=== PATIENT | male | born 1945 | race Caucasian/White ===

== ENCOUNTER 2023-04-04 09:54 | Outpatient (AMB) | payer MEDICARE, SELFPAY ==
--- NOTE | 2023-04-04 10:11 | A.OFFVIS_ITS ---
Intake Vital Signs 04/04/23 10:17 Height 6 ft 3 in Weight 192 lb BMI 24.0 BP 132/84 Blood Pressure Location Rt brachial Position Sitting Pulse 73 Pulse Source Pulse Oximeter Pulse Oximetry (%) 95 Oxygen Delivery Method Room Air Intake Visit Reasons: [id number]-IFC Intake Note: Patient presents for parkinson's. We were going to a doctor in [place] for my tremors but things happened where I couldn't travel to every appointment so we looked for something close by. Allergies oxycodone [OXYCODONE] Allergy (Unknown, Unverified 04/04/23 10:19) UNK Gxreaqg-HEI-OlW Reductase Inhibitor [BCQFIMV-BRH-YSA REDUCTASE INHIBITOR] Allergy (Unknown, Unverified 04/04/23 10:19) UNK LEVOQUIN Allergy (Unknown, Uncoded 04/04/23 10:19) UNK LEVOSTATIN Allergy (Unknown, Uncoded 04/04/23 10:19) UNK HPI HPI Comments History of Present Illness Details 77-yr-old male presents for new pt evalu ation of movement disorder, specifically: transfer of care for Parkinson's. Accompanied by his , Swathi. Pt reports he was diagnosed w/ Parkinson's in 2019. He states shortly after he had open heart surgery. He started noting RUE rest tremor- such as when driving or being more tired. He was initially diagnosed w/ Parkinson's by Dr Levy and then [place] [facility] [place] Current PD med tx: CD-LD 25-100mg 1 tab qid- 6am, 10am, 2pm, 6pm. Can wear off when he is late for a dose by an hour. He was 1st tried on rasagiline, he he denies intolerance, states it was just stopped when he switched to carbidopa levodopa. Had a brain MRI- at [facility]- normal. No h/o DaTscan. Past medical history is significant for: Recent diagnosis of liver cyst, recent TURP. PFO closure, heart disease. Pt is ambidextrous- writes, uses a bow and arrow right handed, shoots a gun left handed. Can hammer either hand. ADL status: Ind IADL status: Ind Fine-motor skills: No issues. Coffee cup may shake. Pt reports: Micrographia: Small and shaky. Hypophonia: May be hoarse Hyposmia: Intact Dysphagia: Denies Drooling: Sometimes when he eats Orthostatic lightheadedness: Has had episodes of lightheadedness when standing for a while or standing up. 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 new cardiac valve ([facility] site). : urinary leakage. Constipation: Denies- more so loose stools- varies depending on diet. Slowness: Feels slower overall- even before he had recent health issues. Freezing episodes: After the heart sx- he did feel like the RLE moved like it was on ice. Tremor: Now RUE rest tremor, left arm has just started w/ rest tremor. More if tired or anxious. Some action tremor- holding a coffee cup. Stiffness: Denies Gait changes: No falls. notes he is more stooped. Sleep difficulty: Waking up frequently- has nocturia. Slept walked as a child. No recent parasomnias. Memory impairment: Overall ok. Some STM lapses, usually if not important. Does have [place]- does not hear well w/o HAs. Plays solitaire. Hallucinations: Denies Usual exercise: Plays golf. Goes hunting w/ his family. Does yard work. Mother: He has had 2 episodes from the left eye, where a it appears that a shade is coming down, which last seconds. He states he has had an extensive workup for this, and the etiology was not elicited. History of concussion/head injury? Denies History of neuroleptic (metoclopramide/antipsychotics) use? Denies History of psychiatric hospitalizations? Denies History of occupational chemical exposures? Was in the [place] worked on an [employer]. [employer] on a [employer] unit for 32 yrs 4 months. Family history of movement disorders? His brother had ET since age 12. Family history of mood disorder or suicide? Denies. REPLACED BY [facility] Surgical History (Updated 04/18/23 @ 17:23 by GALE Koroma) S/P patent foramen ovale closure H/O transurethral resection of prostate H/O heart surgery Family History (Updated 04/04/23 @ 10:23 by NEEMA Sahu) Father CHF (congestive heart failure) Emphysema lung Mother Pneumonia Brother Tremor Social History (Updated 04/04/23 @ 10:23 by NEEMA Sahu) Alcohol intake: never Patient Tobacco Use Status: Never used Tobacco Review of Systems Const All systems reviewed & are unremarkable except as noted in HPI and below Physical Exam Vital Signs: Last Vital Signs Pulse 73 04/04/23 10:17 BP 132/84 04/04/23 10:17 Pulse Ox 95 04/04/23 10:17 Oxygen Delivery Method Room Air 04/04/23 10:17 BMI result Body Mass Index 24.0 Const General: cooperative and no acute distress Resp Effort & Inspection: normal respiratory effort and able to speak in complete sentences Neuro Other: General: Alert and oriented x3 Expression: Decreased facial expression, mild left lower facial asymmetry Voice: Softer Tremor: RUE rest tremor, mild BUE postural tremor, very mild bilateral kinetic tremor on finger-nose test Tone: Mild left wrist tone MIKIE: Slightly decreased fluidity in LUE Dyskinesia: None FFM: Mildly decreased Foot taps: Decreased on right- elicited bilateral left greater than right spread of movement into BUE- patient had never noticed this before. Gait: Stand slowly, slight stoop, no right arm swing, decreased left arm swing, steady gait. Psych: Pleasant affect Cranial nerves: Yes CN's II-XII intact bilaterally Motor exam (neuro): 5/5 motor strength present throughout Deep tendon reflexes (DTR's): Right triceps reflex intensity grade: 2+, Left triceps reflex intensity grade: 2+, Rt Biceps (C5, C6): 2+, Left biceps reflex intensity grade: 2+, Right brachioradialis reflex intensity grade: 2+, Left brachioradialis reflex intensity grade: 2+, Right patellar reflex intensity grade: 2+ and Left patellar reflex intensity grade: 2+ Coordination: uoraam-fe-idof test normal Psych Mental Status: mental status grossly normal Speech and movement: Normal speech and movement present Affect: normal affect Attitude: cooperative Thought process: Normal thought process present Assessment & Plan Assessment & Plan (1) Parkinson's disease without dyskinesia: Code(s): G20.A1 - Parkinson's disease without dyskinesia, without mention of fluctuations (2) Orthostatic lightheadedness: Code(s): R42 - Dizziness and giddiness (3) Tremor: Code(s): R25.1 - Tremor, unspecified Plan Continue carbidopa levodopa 25-100 mg 1 tab q.i.d. Ensure adequate fluid intake, electrolyte replacement beverages. Try foot taps prior to standing, stand up slowly, avoid turning too quickly. Continue to slowly increase physical activity. Continue cognitively stimulating activities. Patient seen in collaboration with Dr. Brown. Follow-up in 3 months or sooner as needed Coding Level of Care Code New Pt Level 4 (51209) Diagnoses Parkinson's disease without dyskinesia G20.A1 Orthostatic lightheadedness R42 Tremor R25.1
[2023-04-04 10:17] VITALS: BP 132/84; PULSE 73; O2SAT 95; BMI 24.0
== END 2023-04-04 11:46 | disposition home or self-care (01) ==
PROVIDERS: PCP Internal Medicine; Visit Provider Nurse Practitioner Family
DX: G20.A2 Parkinson's disease without dyskinesia, with fluctuations (principal); R42 Dizziness and giddiness
CPT/HCPCS: 99204

== ENCOUNTER → 2023-04-04 09:54 | Outpatient (BNVA) | payer MEDICARE, SELFPAY | PROVIDERS: PCP Internal Medicine; Visit Provider Nurse Practitioner Family | DX: G20.A1 Parkinson's disease without dyskinesia, without mention of fluctuations (principal); R42 Dizziness and giddiness; Z79.899 Other long term (current) drug therapy | CPT/HCPCS: 99202 ==

== ENCOUNTER 2023-07-05 11:26 | Outpatient (AMB) | payer MEDICARE, SELFPAY ==
--- NOTE | 2023-07-05 11:58 | A.OFFVIS_ITS ---
Vital Signs 07/05/23 12:11 Height 6 ft 3 in Weight 201 lb 4 oz BMI 25.2 BP 132/80 Blood Pressure Location Lt brachial Position Sitting Pulse 57 Pulse Source Pulse Oximeter Pulse Oximetry (%) 97 Oxygen Delivery Method Room Air Intake Visit Reasons: 3m follow up Parkinson/ Confirmed /address Intake Note: Patient presents for 3 months f/u. Both arms shake more when tired especially right hand. Went to see eye doctor and they questioned having a ocular migraine. on 04/06/23 the right eye shaded and left eyed did the same the next day. On 04/13 going to see Rag Room Supervisor questionable valve replacement. Allergies oxycodone [OXYCODONE] Allergy (Unknown, Verified 07/05/23 12:03) UNK Uvjuqjr-IGH-SnD Reductase Inhibitor [IAGQMIK-FDH-ELP REDUCTASE INHIBITOR] Allergy (Unknown, Verified 07/05/23 12:03) UNK LEVOQUIN Allergy (Unknown, Uncoded 04/04/23 10:19) UNK LEVOSTATIN Allergy (Unknown, Uncoded 04/04/23 10:19) UNK HPI Comments Details: 77-yr-old male presents for f/u for Parkinson's. Accompanied by his , Swathi. Since the last visit, pt reports on 04/06/23, pt reports he was sitting and watching TV, when it seemed like a curtain was being pulled down from over the right eye x's 1-1.5 minutes. Then the next night, he had this again, but it occurred on the left eye. He was off his ASA at this time for an upcoming procedure. In hindsight, believes pt was off his ASA when he had the 1st episode of shaded vision change in Dec 2022. He has a h/o severe migraine which resolved s/p AVR and PFO closure. Since, he has just mild headache and muscle soreness. He has taken Tylenol 650mg/1000mg 4 time sin the past 8 days. Current PD med tx: CD-LD 25-100mg 1 tab qid- 6am, 10am, 2pm, 6pm. Can wear off when he is late for a dose by an hour. Previous trials- 1st tried on rasagiline, he denies intolerance, was switched to carbidopa levodopa. Pt is ambidextrous- writes, uses a bow and arrow right handed, shoots a gun left handed. Can hammer either hand. ADL status: Ind Hypophonia: May be hoarse Hyposmia: Intact Dysphagia: Denies Drooling: Noticing more drooling. Orthostatic lightheadedness: This is better since stopping spirinolactone and reducing entresto. : Improved, no leakage. Constipation: Denies. Slowness: Feels slower overall- even before he had recent health issues. Freezing episodes: Denies Tremor: Now RUE rest tremor, left arm has just started w/ rest tremor. More if tired or anxious. Some action tremor- holding a coffee cup. Stiffness: Denies Gait changes: He has had 2 falls- one was he tripped stepping off a small ledge, dave othe rtripped over alog. It feels like his RLE is dragging a bit more. Sleep difficulty: Waking up frequently- has nocturia. Slept walked as a child. No recent parasomnias. Memory impairment: Overall ok. Some STM lapses, usually if not important. Wearing HAs. Plays solitaire on the computer. Hallucinations: Denies Usual exercise: Plays golf. Goes hunting w/ his family. Does yard work. 04/19/23, US Duplex Cranial Ext. Artery BiLat IMPRESSION: RIGHT SIDE: 1. 1-49% stenosis of the right ICA. 2. The vertebral artery has normal antegrade flow. 3. The subclavian artery has normal multiphasic flow. LEFT SIDE: 1. 1-49% stenosis of the left ICA. 2. The vertebral artery has normal antegrade flow. 3. The subclavian artery has normal multiphasic flow. [facility] Surgical History S/P patent foramen ovale closure H/O transurethral resection of prostate H/O heart surgery Family History Father CHF (congestive heart failure) Emphysema lung Mother Pneumonia Brother Tremor Social History Alcohol intake: never Patient Tobacco Use Status: Never used Tobacco Review of Systems Const All systems reviewed & are unremarkable except as noted in HPI and below Physical Exam Vital Signs: Last Vital Signs Pulse 57 07/05/23 12:11 BP 132/80 07/05/23 12:11 Pulse Ox 97 07/05/23 12:11 Oxygen Delivery Method Room Air 07/05/23 12:11 BMI result Body Mass Index 25.2 Const General: cooperative and no acute distress Resp Effort & Inspection: normal respiratory effort and able to speak in complete sentences Neuro Other: General: Alert and oriented x3 Expression: Decreased facial expression, mild left lower facial asymmetry Voice: Softer Tremor: RUE rest tremor, mild BUE postural tremor. Tone: Mild left wrist tone MIKIE: Slightly decreased fluidity in LUE Dyskinesia: None FFM: Mildly decreased Foot taps: Decreased on right- elicited LUE spread of movement tremor. Gait: Stand slowly, slight stoop, no right arm swing, decreased left arm swing, steady gait. Psych: Pleasant affect Assessment & Plan Assessment & Plan (1) Parkinson's disease without dyskinesia: Code(s): G20.A1 - Parkinson's disease without dyskinesia, without mention of fluctuations Category: Medical (2) Headache: Code(s): R51.9 - Headache, unspecified Category: Medical (3) Transient visual loss: Comment: ? aura w/o headache, ? r/t holding ASA in setting of h/o migraine and PFO. Code(s): H53.129 - Transient visual loss, unspecified eye Category: Medical Plan Continue carbidopa-levodopa 25-100 mg 1 tab q.i.d. Ensure adequate fluid intake, electrolyte replacement beverages, such as liquid IV. Continue to engage in regular physical activity. Continue cognitively stimulating activities. Monitor drooling. Monitor headaches and visual episodes. Continue ASA 81mg qd. May use tylenol prn. Future considerations: gepant. ? Follow-up in 6 months or sooner as needed Coding Level of Care Code Est Pt Level 4 (65856) Diagnoses Parkinson's disease without dyskinesia G20.A1 Headache R51.9 Transient visual loss H53.129
[2023-07-05 12:11] VITALS: BP 132/80; PULSE 57; O2SAT 97; BMI 25.2
== END 2023-07-05 14:19 | disposition home or self-care (01) ==
PROVIDERS: PCP Internal Medicine; Visit Provider Nurse Practitioner Family
DX: G20.A1 Parkinson's disease without dyskinesia, without mention of fluctuations (principal); R51.9 Headache, unspecified; H53.129 Transient visual loss, unspecified eye
CPT/HCPCS: 99214

== ENCOUNTER → 2023-07-05 11:26 | Outpatient (BNVA) | payer MEDICARE, SELFPAY | PROVIDERS: PCP Internal Medicine; Visit Provider Nurse Practitioner Family | DX: G20.A1 Parkinson's disease without dyskinesia, without mention of fluctuations (principal); R51.9 Headache, unspecified; H53.129 Transient visual loss, unspecified eye; Z79.82 Long term (current) use of aspirin | CPT/HCPCS: 99212 ==

== ENCOUNTER 2024-01-23 10:50 | Outpatient (AMB) | payer MEDICARE, SELFPAY ==
--- NOTE | 2024-01-23 10:55 | A.OFFVIS_ITS ---
Vital Signs 01/23/24 11:00 Height 6 ft 3 in Weight 178 lb 6 oz BMI 22.3 BP 110/80 Blood Pressure Location Lt brachial Position Sitting Pulse 83 Pulse Source Pulse Oximeter Pulse Oximetry (%) 96 Oxygen Delivery Method Room Air Intake Visit Reasons: 6 mo f/u Intake Note: Patient presents for a 6 mo fu for Parkinson's. Personal Financial Representative Required: No Accompanied by: Spouse Allergies oxycodone [OXYCODONE] Allergy (Unknown, Verified 01/23/24 11:00) UNK Kmwrpbl-TOV-KlT Reductase Inhibitor [ZIWACPO-HTM-HQB REDUCTASE INHIBITOR] Allergy (Unknown, Verified 01/23/24 11:00) UNK LEVOQUIN Allergy (Unknown, Uncoded 04/04/23 10:19) UNK LEVOSTATIN Allergy (Unknown, Uncoded 04/04/23 10:19) UNK Medication List - Last Reconciled 01/23/24 by GALE Koroma amoxicillin 1,000 mg PO BID PRN aspirin (Adult Aspirin Regimen) 81 mg PO DAILY carbidopa-levodopa 25-100 mg (Sinemet) 1 tab QID and may take 1 extra tab per day (max 2 tabs at a time) orally; 90 days cephalexin 500 mg PO QID PRN finasteride 5 mg PO DAILY metoprolol succinate ER 12.5 mg PO DAILY sacubitril-valsartan 24-26 mg (Entresto) 0.5 tabs PO BID HPI Comments Details: 77-yr-old male presents for f/u for Parkinson's. Accompanied by his , Carmella tellez. Pt reports the following interval hsitory: * August 2023- had a mild case of Covid-19 * 09/2023- [facility] admission for cholangitis w/ laparoscopic cholecystectomy. * 12/12/2023- [facility] cardiac surgeon consult w/ Dr Roman Miranda,- raised ? of f/u AVR, however per pt, however Dr Ruiz's team has advised him to manage/monitor this medically. * 12/16/23- developed a visible abdominal lump * 01/18/24- [facility] admission for same abdominal lump became reddened. As pt has a h/o melanoma, pt was d/c'd home w/ plan to have oncology consult and f/u abd mass core biopsy- he is awaiting call on this. In-pt work-up: -Mild anemia - Abd CT- Probable extra-abdominal abscess located within the super right paramedian ventral abdominal wall at site of presumed laparoscopic port. Area of abnormality is measuring up to 3.6 cm with hazy borders and surrounding fat stranding as well as a superficial mild extension into the peritoneum. Skin thickening superficial to the collection. This finding correlates with the collection seen on recent MRI. - Abd MRI w/wo: 1. Rim-enhancing areas involving the anterior abdominal wall but also extending into the intraperitoneal fat one near midline extending from the subcutaneous fat to the intraperitoneal fat, the other involving the anterior margin of the liver in the prior location of the anterior aspect of the gallbladder fossa, and extending to the deep aspect of the RIGHT anterior abdominal musculature but not the subcutaneous fat consistent with persisting inflammation or infection of access sites utilized during the laparoscopic cholecystectomy of September 2023. 2. Large number of hepatic cysts. Several small cystic foci in the pancreatic body suggestive of side branch IPMNs or as per ACR recommendations, no dedicated imaging follow- up is required but a one-time follow-up in 2 years could be considered if clinically warranted. * Plans to have bilateral cataract replacement after the new year. Specific concerns today: Pt reports generally he wakes up in the am, he feels good. But later in the morning, after cleaning the kitchen, will need to rest. He can do some activities, but needs frequent breaks. Will often need to rest for the later part of the day. notes he usually just rests and does not sleep when resti ng. He may cough so hard or have dry heaves, often happens when he is having a bowel movement, that he will vomit. His nose drips while eating. He often has a bitter taste in his mouth. He has decreased appetite and weight loss- best meal is typically at breakfast/lunch, but does tend to pick at his food. Uses 1% milk. Pt wonders if he can take an extra dose of CD-LD mid-morning when he is more s haky. Current PD med tx: CD-LD 25-100mg 1 tab qid- 6am, 10am, 2pm, 6pm. Can be more shaky after 10am dose when doing yard work. Previous trials- 1st tried on rasagiline, he denies intolerance, was switched to carbidopa levodopa. Pt is ambidextrous- writes, uses a bow and arrow right handed, shoots a gun left handed. Can hammer either hand. ADL status: Ind Hypophonia: May be hoarse Hyposmia: Intact Dysphagia: Denies Drooling: Noticing more drooling. Orthostatic lightheadedness: Comes and goes especially if SBP is <112, manages by sitting and taking extra wtaer. : Improved, no leakage. Constipation: Denies. Slowness: Walks slower overall. Freezing episodes: Denies Tremor: BUE L > R rets tremor, Stiffness: Denies Gait changes: Slower walking. One interval fall- was doing yard work and stepping on an unstable walk. Sleep difficulty: Waking up frequently- has nocturia. Slept walked as a child. No recent parasomnias. Memory impairment: Overall ok. Stable STM lapses, usually if not important. Wearing HAs. Plays solitaire on the computer. Hallucinations: Denies Usual exercise: Tries to walk and does yard work. PFSH Surgical History S/P patent foramen ovale closure H/O transurethral resection of prostate H/O heart surgery Family History Father CHF (congestive heart failure) Emphysema lung Mother Pneumonia Brother Tremor Social History Alcohol intake: never Patient Tobacco Use Status: Never used Tobacco Physical Exam Vital Signs: Last Vital Signs Pulse 83 01/23/24 11:00 BP 110/80 01/23/24 11:00 Pulse Ox 96 01/23/24 11:00 Oxygen Delivery Method Room Air 01/23/24 11:00 BMI result Body Mass Index 22.3 Const General: cooperative and no acute distress Resp Effort & Inspection: normal respiratory effort and able to speak in complete sentences Neuro Other: General: Alert and oriented x3 Skin: Red raised visible mass along right abdomen. Expression: Decreased facial expression, mild left lower facial asymmetry Voice: Softer Tremor: RUE and RLE rest tremor, mild BUE postural tremor. Tone: Mild left wrist tone Dyskinesia: None FFM: Mildly decreased Foot taps: Decreased on right- elicited LUE spread of movement tremor. Gait: Stand slowly, slight stoop, no right arm swing, decreased left arm swing, steady gait. Psych: Pleasant affect Assessment & Plan Assessment & Plan (1) Parkinson's disease without dyskinesia: Code(s): G20.A1 - Parkinson's disease without dyskinesia, without mention of fluctuations Category: Medical (2) Weight loss: Code(s): R63.4 - Abnormal weight loss Category: Medical (3) Headache: Code(s): R51.9 - Headache, unspecified Category: Medical (4) Transient visual loss: Comment: ? aura w/o headache, ? r/t holding ASA in setting of h/o migraine and PFO. Code(s): H53.129 - Transient visual loss, unspecified eye Category: Medical Plan Discussed that many of pt's s/s of fatigue, poor appetite may have multi- factorial etiology. F/u of abd mass as planned w/ core biopsy and oncology consult. F/u w/ cardiology as scheduled. Continue carbidopa-levodopa 25-100 mg 1 tab q.i.d. May take 1 extra tab per day, max 2 tabs at a time. Ensure adequate fluid intake, electrolyte replacement beverages, such as liquid IV. 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 Discussed simple strategies to improve swallowing safety, such as chin tucks, double swallow, alternating between liquids and solids. Pt has had swallow eval previously. As pt has decreased appetite and weight loss, encouraged pt to increase caloric/nutritional component of his meals- ie try adding whole/milk based fruit/veggie smoothies, add peanut/nuts to snacks. Continue to engage in regular physical activity- take rests as needed. Continue cognitively stimulating activities. Monitor drooling. Monitor headaches and visual episodes. Continue ASA 81mg qd. May use tylenol prn. Future considerations: gepant. ? Follow-up in 6 months or sooner as needed Medications: Changed From carbidopa-levodopa 25-100 mg (Sinemet) 1 tab PO QID 90 days 360 tabs 1RF To carbidopa-levodopa 25-100 mg (Sinemet) 1 tab QID and may take 1 extra tab per day (max 2 tabs at a time) orally; 540 tabs 1RF 90 days Coding Level of Care Code Est Pt Level 4 (09472) Complex EM visit Add On G2211 Diagnoses Parkinson's disease without dyskinesia G20.A1 Weight loss R63.4 Headache R51.9 Transient visual loss H53.129
[2024-01-23 11:00] VITALS: BP 110/80; PULSE 83; O2SAT 96; BMI 22.3
== END 2024-01-23 11:54 | disposition home or self-care (01) ==
PROVIDERS: PCP Internal Medicine; Visit Provider Nurse Practitioner Family
DX: G20.A1 Parkinson's disease without dyskinesia, without mention of fluctuations (principal); R63.4 Abnormal weight loss; R51.9 Headache, unspecified; H53.129 Transient visual loss, unspecified eye
CPT/HCPCS: 99214; G2211

== ENCOUNTER → 2024-01-23 10:50 | Outpatient (BNVA) | payer MEDICARE, SELFPAY | PROVIDERS: PCP Internal Medicine; Visit Provider Nurse Practitioner Family | DX: G20.A1 Parkinson's disease without dyskinesia, without mention of fluctuations (principal); R63.4 Abnormal weight loss; R51.9 Headache, unspecified; H53.129 Transient visual loss, unspecified eye | CPT/HCPCS: 99212 ==

== ENCOUNTER 2024-07-26 10:06 | Outpatient (AMB) | payer MEDICARE, SELFPAY ==
[2024-07-26 10:17] VITALS: BP 100/62; PULSE 80; O2SAT 96; BMI 21.7
--- NOTE | 2024-07-26 10:17 | A.OFFVIS_ITS ---
Vital Signs 07/26/24 10:17 Height 6 ft 3 in Weight 174 lb BMI 21.7 BP 100/62 Blood Pressure Location Lt brachial Position Sitting Pulse 80 Pulse Source Pulse Oximeter Pulse Oximetry (%) 96 Oxygen Delivery Method Room Air Intake Visit Reasons: 6 mo f/u Intake Note: Patient presents 6 month follow up for Parkinson's/headaches. Trauma Counsellor Required: No Accompanied by: Self / Same As Patient Allergies oxycodone [OXYCODONE] Allergy (Unknown, Verified 07/26/24 10:17) UNK Ccefkax-ZMC-HsP Reductase Inhibitor [XZATCRL-NIG-QSM REDUCTASE INHIBITOR] Allergy (Unknown, Verified 07/26/24 10:17) UNK LEVOQUIN Allergy (Unknown, Uncoded 04/04/23 10:19) UNK LEVOSTATIN Allergy (Unknown, Uncoded 04/04/23 10:19) UNK Medication List - Last Reconciled 07/26/24 by Yuli Ugalde, GALE amoxicillin 1,000 mg PO BID PRN aspirin (Adult Aspirin Regimen) 81 mg PO DAILY carbidopa-levodopa 25-100 mg (Sinemet) 1 tab orally 5 Times per day; 90 days finasteride 5 mg PO DAILY omeprazole 20 mg PO DAILY HPI Comments Details: 78-yr-old male presents for f/u for Parkinson's. Accompanied by his , Swathi. Pt reports he underwent interval recent hospitalization for liver abscesses. Per [facility], [place] note initial MRI showed new abscess locations compared to previous infections, and the patient eventually underwent drainage with cultures that grew Citrobacter freundii, which was susceptible to tetracyclines, aminoglycosides, cefepime, ceftriaxone, and carbapenems, he was initially started on Zosyn, but due to lack of susceptibility data for Zosyn, antibiotic therapy was switched to ertapenem; imaging also revealed hepatic simple cysts, the largest measuring 10.5 cm, and while IR initially attempted drainage without success, they were able to aspirate a small amount of fluid and planned for a return with CT guidance; the IR drain was ultimately removed on 07/20 following complete resolution of both subcapsular and left hepatic lobe collections, and catheters were removed without complication; throughout the course, the patient denied fever, chills, nausea, or diarrhea, and a PICC line was placed without evidence of swelling, erythema, or drainage; a tentative plan for 4 weeks of IV ertapenem was established, with completion scheduled for 07/24 . Pt reports within 24 hrs of starting the ABT for treatment of above liver abscesses, he started to feel better and was able to eat again. He continues to eat better, taking protein supplements and plans to start a probiotic. He has gained about 6 lb since hospital discharge. Overall patient is feeling better. Patient and canceled follow-up PFTs and swallow study, as patient is eating better, not having any difficulty swallowing, and he is breathing better since hospital discharge. His energy level overall is in increasing slowly. he was discharged home with PT, however they stated that his gait is okay and he was discharge. Current PD med tx: He did increase the carbidopa levodopa after the last visit from 1 tab q.i.d. to 1 tab 5 times per day, which has been beneficial. CD-LD 25-100mg 1 tab 5 times per day- 6am, 9am, 12pm, 3pm, 6pm. Can be more shaky after 9am dose. Previous trials- 1st tried on rasagiline, he denies intolerance, was switched to carbidopa levodopa. Pt is ambidextrous- writes, uses a bow and arrow right handed, shoots a gun left handed. Can hammer either hand. ADL status: Ind Hypophonia: May be hoarse Hyposmia: Intact Dysphagia: Denies Drooling: Noticing more drooling. Orthostatic lightheadedness: Comes and goes. His entresto and metoprolol were stopped during the hospitalization due to orthostatic lightheadedness. : Improved, no leakage. Constipation: Had constipation, but has had some loose stools overall the last few days. Slowness: Walks slower overall. Freezing episodes: Denies Tremor: BUE L > R rest tremor Stiffness: Denies Gait changes: Slower walking. Can be off-balance with turns. No interval falls. Sleep difficulty: Waking up 2 x's per night to void. Slept walked as a child. No recent parasomnias. Memory impairment: Overall ok. Stable STM lapses, usually if not important. Wearing HAs. Plays solitaire on the computer. Hallucinations: Denies Usual exercise: Trying to walk. PFSH Surgical History S/P patent foramen ovale closure H/O transurethral resection of prostate H/O heart surgery Family History Father CHF (congestive heart failure) Emphysema lung Mother Pneumonia Brother Tremor Social History Alcohol intake: never Patient Tobacco Use Status: Never used Tobacco Physical Exam Vital Signs: Last Vital Signs Pulse 80 07/26/24 10:17 BP 100/62 07/26/24 10:17 Pulse Ox 96 07/26/24 10:17 Oxygen Delivery Method Room Air 07/26/24 10:17 BMI result Body Mass Index 21.7 Const General: cooperative and no acute distress Resp Effort & Inspection: normal respiratory effort and able to speak in complete sentences Neuro Other: General: Alert and oriented x3 Expression: Decreased facial expression, mild left lower facial asymmetry Voice: Softer Tremor: RUE rest tremor, mild BUE postural tremor. Foot taps induced left hand spread of movement Tone: Mild left wrist tone Dyskinesia: None FFM: Mildly decreased Foot taps: Decreased o Gait: Stand slowly, slight stoop, no right arm swing, decreased left arm swing, steady gait. Psych: Pleasant affect Assessment & Plan Assessment & Plan (1) Parkinson's disease without dyskinesia: Code(s): G20.A1 - Parkinson's disease without dyskinesia, without mention of fluctuations Category: Medical Qualifiers: Fluctuating manifestations: with fluctuating manifestations Qualified Code(s): G20.A2 - Parkinson's disease without dyskinesia, with fluctuations (2) Orthostatic lightheadedness: Code(s): R42 - Dizziness and giddiness Category: Medical (3) Weight loss: Comment: Improving Code(s): R63.4 - Abnormal weight loss Category: Medical (4) Headache: Code(s): R51.9 - Headache, unspecified Category: Medical (5) Liver abscess due to bacteria: Comment: June 2024, , tx'd w/ Zosyn and s/p drainage with cultures that grew Citrobacter freundii and ertapenem Code(s): K75.0 - Abscess of liver; B96.89 - Other specified bacterial agents as the cause of diseases classified elsewhere Category: Medical (6) Simple hepatic cyst: Code(s): K76.89 - Other specified diseases of liver Category: Medical Plan Patient' s/s of fatigue and poor appetite have improved status post treatment of liver abscesses. Concur with taking protein shakes with ice cream to improve tolerance. Advised to follow-up with GI or ID if loose stools persist or worsen. F/u with GI as scheduled For Parkinson's without dyskinesia: Continue carbidopa-levodopa 25-100 mg 1 tab 5 times per day, may take an extra 1/2-1 tab per day as needed. For orthostatic lightheadedness: * Entresto and metoprolol were discontinued due to orthostatic lightheadedness while he was recently hospitalized. * Ensure adequate fluid intake, electrolyte replacement beverages, such as liquid IV, Gatorade or Powerade. * Encouraged patient to stand slowly to reduce symptoms of orthostatic lightheadedness. * follow-up with cardiology as scheduled Encouraged patient to turn slowly- to reduce risk for becoming off balance. Continue to slowly increase regular physical activity- take rests as needed. Continue cognitively stimulating activities. Future consideration: Referral to [facility] big type PT program. Monitor headaches and visual episodes. Continue ASA 81mg qd. May use tylenol prn. Future considerations: gepant. ? Follow-up in 6 months or sooner as needed Medications: Changed From carbidopa-levodopa 25-100 mg (Sinemet) 1 tab QID and may take 1 extra tab per day (max 2 tabs at a time) orally; 90 days 540 tabs 1RF To carbidopa-levodopa 25-100 mg (Sinemet) 1 tab orally 5 Times per day; 90 days 450 tabs 1RF Coding Level of Care Code Est Pt Level 4 (31472) Complex EM visit Add On G2211 Diagnoses Parkinson's disease without dyskinesia, with fluctuating manifestations G20.A2 Fluctuating manifestations: with fluctuating manifestations Orthostatic lightheadedness R42 Weight loss R63.4 Headache R51.9 Liver abscess due to bacteria K75.0; B96.89 Simple hepatic cyst K76.89
--- OUTSIDE RECORDS SUMMARY | 2024-07-26 10:26 | XMS_ITS | Clinical Summary ---
Author Organization [facility] Address [address] [place] [address] Phone Care Team Providers Care Piggyback Clerk Name Role Phone Liane León MD Primary Care Provider [phone] Allergies Active Allergy Reactions Criticality Noted Date Comments Ceftriaxone 01/20/2023 Levofloxacin Rash High 11/28/2013 Niacin Flushing,Other 11/28/2013 Flushing Oxycodone 01/20/2023 Oxycodone-Acetaminophen 06/13/2017 Spironolactone 01/20/2023 Qquszrf-Lud-Pje Reductase Inhibitors 06/13/2017 Medications carbidopa-levodopa (PARCOPA) 25-100 mg per disintegrating tablet Take 1 tablet by mouth 4 (four) times a day. May take up to 5 tablets if needed Active aspirin (Vazalore) 81 mg capsule Take 1 tablet by mouth 1 (one) time each day. Active finasteride (PROSCAR) 5 mg tablet Take 1 tablet (5 mg total) by mouth 1 (one) time each day. Active amoxicillin (AMOXIL) 500 mg capsule Take by mouth. Take 4 capsules 1 hour prior to dental procedure Active citalopram (CeleXA) 20 mg tablet Take 0.5 tablets (10 mg total) by mouth. 05/25/19 25 Active calcipotriene-dres sing 0.005 % kit Apply topically. 03/09/19 17 Active omeprazole (PriLOSEC) [address] capsule Take 1 capsule (20 mg total) by mouth 1 (one) time each day. Do not crush or chew. Active ferrous sulfate 325 mg (65 mg elemental iron) tablet Take 1 tablet (325 mg total) by mouth. 06/25/19 25 Active metoprolol succinate (TOPROL-XL) 25 mg 24 hr tablet Take 0.5 tablets (12.5 mg total) by mouth 1 (one) time each day. 45 tablet 2 01/19/20 24 Discontinu ed(Discont inued by another clinician) sacubitriL-valsart an (Entresto) 24-26 mg per tablet Take 0.5 tablets by mouth 2 (two) times a day. Discontinu ed(Discont inued by another clinician) clobetasoL (TEMOVATE) 0.05 % ointment Apply topically. 03/09/19 17 Discontinu ed(Discont inued by another clinician) losartan (COZAAR) 100 mg tablet Take 1 tablet (100 mg total) by mouth 1 (one) time each day. 03/27/19 19 Discontinu ed(Discont inued by another clinician) cyanocobalamin (VITAMIN B-12) 1,000 mcg tablet Take 1 tablet (1,000 mcg total) by mouth 1 (one) time each day. 03/26/19 23 Discontinu ed(Discont inued by another clinician) vibegron (GEMTESA) 75 mg tablet tablet Take 1 tablet (75 mg total) by mouth 1 (one) time each day. Discontinu ed(Discont inued by another clinician) oxyBUTYnin XL (DITROPAN-XL) 10 mg 24 hr tablet Take 1 tablet (10 mg total) by mouth. Do not crush, chew, or split. Discontinu ed(Discont inued by another clinician) MULTIVITAMIN ORAL Take by mouth. Discontinu ed(Discont inued by another clinician) terazosin (HYTRIN) 1 mg capsule Take 1 capsule (1 mg total) by mouth at bedtime. Discontinu ed(Discont inued by another clinician) hydroCHLOROthiazid e (HYDRODIURIL) 25 mg tablet Take 1 tablet (25 mg total) by mouth 1 (one) time each day. Discontinu ed(Discont inued by another clinician) carbidopa-levodopa CR (SINEMET CR) 50-200 mg per CR tablet Take 1 tablet by mouth 2 (two) times a day. Do not crush or chew. Discontinu ed(Discont inued by another clinician) Active Problems Problem Noted Date Diagnosed Date Major depressive disorder, s janna episode, mild (CMS/[facility] V24) 07/24/2024 Cataract, bilateral 07/24/2024 Adjustment disorder with mixed anxiety and depre ssed mood 07/24/2024 Irregular heart rate 07/13/2024 Assessment & Plan (07/13/2024 10:22 PM EDT): Sinus bradycardia noted on ECG; will continue to monitor. Orders: ECG 12 lead Anxiety disorder, unspecified 07/05/2024 Irritability and anger 07/05/2024 Essential (primary) hypertension 07/05/2024 Assessment & Plan (07/13/2024 10:22 PM EDT): Given his dizziness, all antihypertensives have been stopped. BP has been somewhat labile and slightly above goal intermittently but his dizziness is improved; he is orthostatic but asymptomatic today. We will continue to hold off on restarting medical therapies until after his echo is completed. They will continue to monitor BP at home and call if blood pressures are persistently elevated above 140/80s at which time we may reconsider reinitiating medical therapies sooner. We will continue close follow up. Diverticulosis of colon 06/04/2024 Overview (06/04/2024): [birth year] 2008 Entered By: SHILA ANDREW Comment: -- by colonoscopy 08/06 Hypertension 06/04/2024 Osteoarthritis 06/04/2024 Overview (06/04/2024): Aug 29[birth year] 2008 Entered By: SHILA ANDREW Comment: -- right knee Tremor 06/04/2024 Overview (06/04/2024): Mar 30, 2017 Entered By: CAIN LUNA Comment: right hand, progressive ? 2 years at rest which decreases wit Mar 30, 2017 Entered By: CAIN LUNA Comment: PCP in the community Dr. Cheryl Harp has scheduled him for neurology in July [address] Pro Parkinson's disease ([facility] V24, [facility] V28) 0 06/04/2024 Primary hypertension 04/19/2024 Assessment & Plan (04/19/2024 12:43 PM EST): Blood pressure is well-controlled on current medical therapy; given his history of longstanding intermittent dizziness/lightheadedness, we will not make any changes today as he has historically not tolerated any higher doses of these medications well in the past for this reason. Continue metoprolol and low-dose Entresto. We will update labs today. Atrial fibrillation ([facility] V24, [facility] V28) 0 04/19/2024 Assessment & Plan (04/19/2024 12:43 PM EST): The patient carries a diagnosis of atrial fibrillation; I have previously discussed this with the patient and he does not recall ever having any episodes of atrial fibrillation and his confirms this. I previously reviewed multiple medical records from hospitalizations and previous EKGs and have not noted any documentation of this. It is unclear where this diagnosis came from. As such the patient is not anticoagulated. We discussed the risks and benefits related to this and he wishes to continue with the current plan of anticoagulation unless atrial fibrillation is documented. Chronic fatigue 04/19/2024 Assessment & Plan (04/19/2024 12:43 PM EST): We had an in-depth discussion today regarding other causes for the patient's various concerns, namely his chronic fatigue, dizziness, and unintentional weight loss. His fatigue and dizziness may have origins lying in his Parkinson's diagnosis; they will continue to follow with neurology and have a visit already planned for the next few months. He has been discussing increasing his carbidopa-levodopa with his neurologist and will continue to readdress this with that provider as indicated. He does not believe that he has had labs completed in quite some time; we will update labs today to evaluate for any possible underlying electrolyte derangement as well as for any anemia or thyroid dysregulation that may be contributory. Orders: Basic metabolic panel; Future Magnesium; Future Thyroid stimulating hormone with reflex free T4; Future Complete blood count; Future Chronic systolic heart failure ([facility] V24, [facility] V28) 04/19/2024 Assessment & Plan (07/13/2024 10:22 PM EDT): The patient has had a prolonged period of illness related to a combination of underlying GI illness including significant infection with liver abscesses; this has led to significant deconditioning which has contributed at least in part to his dizziness. Since his underlying infection has been treated and GDMT discontinued, his dizziness has improved greatly and he does appear to be slowly improving. Dr. Ruiz was present today for the patient's visit; we will plan to update an echocardiogram within the next one to two weeks and consider reinitiation of GDMT for heart failure based on these results. In the interim, he will continue to focus on his recovery and gaining strength and endurance, calling our office for any worsening heart failure symptoms. He appears euvolemic on exam today and offers no symptoms to cause concern for overt heart failure. I've asked the patient to call if they develop worsening symptoms of heart failure such as increased shortness of breath, new or worsening cough, increased swelling in the legs or ankles, or weight gain of more than 2 pounds in one day or 4 pounds in one week. Orders: Transthoracic echocardiogram (TTE) complete with PRN contrast, bubble, strain, and 3D order panel; Future Assessment & Plan (04/19/2024 12:43 PM EST): Weight loss, unintentional 04/19/2024 Assessment & Plan (04/19/2024 12:43 PM EST): As above; we had an in-depth discussion regarding the patient's significant health challenges over the last year, which are likely contributory to the the patient's change in appetite and subsequent weight loss. We discussed eating small frequent meals high in nutritional content and he will follow-up with his PCP regarding further concerns related to this. Orders: Thyroid stimulating hormone with reflex free T4; Future Hyperlipidemia 04/19/2024 Assessment & Plan (07/13/2024 10:22 PM EDT): LDL goal for this patient was a history of coronary artery disease is less than 70; his most recent lipid panel from 03/2024 was off any antilipid agents and LDL was 72. As above we will continue to consider reinitiating antilipid agents as he recovers. Assessment & Plan (04/19/2024 12:43 PM EST): LDL goal for this patient was a history of coronary artery disease is less than 70; as above we will update a lipid panel and and readdress this as needed as he is not currently on any statin therapy. Orders: Lipid panel with reflex to direct LDL; Future Dilated cardiomyopathy (CMS/HCC V24, CMS/HCC V28 ) 04/19/2024 Assessment & Plan (07/13/2024 10:22 PM EDT): Assessment & Plan (04/19/2024 12:43 PM EST): The patient has a dilated cardiomyopathy of uncertain origin; recent cardiac catheterization showed nonobstructive coronary artery disease, confirming that this was nonischemic in origin. LVEF in February 2023 was said to be 40 to 45%; on his most recent echocardiogram from June 2023, his LV function was noted to be severely reduced though no EF could be provided due to poor image quality. Transesophageal echocardiogram subsequently completed 12/09/2023 showed moderately reduced left ventricular systolic function with global hypokinesis, EF of 30 to 35%. The patient's biggest concern is ongoing fatigue; however, his fatigue remains unchanged from previous and he offers no other symptoms concerning for overt heart failure. It is unclear how much of his fatigue is actually related to his heart failure alone. He appears euvolemic on exam today. He continues to report occasional and inconsistent dizziness/lightheadedness with position changes with which presents concern for orthostatic hypotension, especially in the setting of Parkinson's diagnosis; historically, he has not tolerated any higher doses of guideline directed medical therapies for heart failure for this reason and we will not make any further changes to them today. Continue metoprolol and low-dose Entresto. Update labs. I've asked the patient to call if they develop worsening symptoms of heart failure such as increased shortness of breath, new or worsening cough, increased swelling in the legs or ankles, or weight gain of more than 2 pounds in one day or 4 pounds in one week. Coronary artery disease invo lving mcgrath coronary artery of mcgrath heart without angina pectoris 04/19/2024 Assessment & Plan (07/13/2024 10:22 PM EDT): He remains active within his current functional capacity secondary to deconditioning and offers no symptoms concerning for ischemia. He is no longer on beta blockade as above; he is not currently on any antilipid agents and we will continue to readdress this as he recovers. He will continue aspirin and we will reconsider restarting beta blockade appropriate. The patient was advised to seek emergent medical attention by calling 911 if they were to develop severe dyspnea, chest pain that did not resolve with rest, or if they were to faint. Assessment & Plan (04/19/2024 12:43 PM EST): Cardiac catheterization completed in October 2023 revealed a 50% stenosis in the proximal subsection of the mid LAD just after the bifurcation with D1 and minimal luminal irregularities of the LMCA, left circumflex, and RCA; no obstructive disease.We discussed risk reduction through lifestyle modifications including healthy diet, routine exercise, and weight management. Continue cardioprotective medical therapies including metoprolol and daily ASA. He is not currently on any statin therapy and has a statin allergy listed on his chart; we will update a lipid panel today and readdress this as needed. The patient was advised to seek emergent medical attention by calling 911 if they were to develop severe dyspnea, chest pain that did not resolve with rest, or if they were to faint. Orders: Lipid panel with reflex to direct LDL; Future Dizziness 04/19/2024 Assessment & Plan (07/13/2024 10:22 PM EDT): As above, improved from previous. We will reintroduce medical therapies cautiously and as indicated. No recent syncope or presyncope. His dizziness was likely multifactorial related to underlying illness/infection, deconditioning, and medications. He will call the office or seek emergent medical attention as appropriate. We will continue to readdress this as he continues to recover. Orders: Transthoracic echocardiogram (TTE) complete with PRN contrast, bubble, strain, and 3D order panel; Future Assessment & Plan (04/19/2024 12:43 PM EST): As above; the patient was encouraged to remain well-hydrated as well as change positions slowly. Falls precautions were reviewed. Bilateral carotid artery stenosis 04/19/2024 History of TIA (transient ischemic attack) 04/19 Stenosis of prosthetic aortic valve 04/19/2024 Assessment & Plan (07/13/2024 10:22 PM EDT): The patient is status post bovine aortic valve replacement in 2013 at [facility] with elevated gradients commented on as early as 4 months after the valve was initially placed. Given ongoing symptoms of significant fatigue and dizziness, he now status post a significant workup during the end of 2023 (including a cardiac catheterization, transthoracic and transesophageal echocardiograms, and dobutamine stress echocardiogram) which has concluded that the patient's aortic valve stenosis remains in the moderate and not severe range. As such, this does not appear to be causative for his symptoms. We reviewed signs or symptoms for which they should return to care or seek urgent medical attention for further evaluation and they verbalized understanding of this; we will continue to monitor this on serial echocardiograms. Assessment & Plan (04/19/2024 12:43 PM EST): The patient is status post bovine aortic valve replacement in 2013 at [facility] with elevated gradients commented on as early as 4 months after the valve was initially placed. Given ongoing symptoms of significant fatigue and dizziness, he now status post a significant workup during the end of 2023 (including a cardiac catheterization, transthoracic and transesophageal echocardiograms, and dobutamine stress echocardiogram) which has concluded that the patient's aortic valve stenosis remains in the moderate and not severe range. As such, this does not appear to be causative for his symptoms. On presentation today, he reports that his symptoms overall have remained unchanged as outlined above, and it does not feel that any further testing is warranted at this time. However, both the patient and his offer concern that he did not feel the typical symptoms of chest discomfort or shortness of breath prior to his initial valve replacement and they are wondering when they will know when it is time to be replaced again. We reviewed signs or symptoms for which they should return to care or seek urgent medical attention for further evaluation and they verbalized understanding of this; I will discuss timing of repeat testing for surveillance purposes with Dr. Ruiz and we will continue to readdress this accordingly. S/P aortic valve replacement with bioprosthetic valve 04/19/2024 Assessment & Plan (07/13/2024 10:22 PM EDT): Orders: Transthoracic echocardiogram (TTE) complete with PRN contrast, bubble, strain, and 3D order panel; Future Assessment & Plan (04/19/2024 12:43 PM EST): Nonrheumatic aortic valve stenosis 10/12/2023 Psoriasis, unspecified 02/28/2022 Elevated PSA 06/13/2017 Overview (06/04/2024): Aug 29, 2008 Entered By: SHILA ANDREW Comment: -- followed by Dr. Negron, has had biopsies Mar 30, 2017 Entered By: CAIN LUNA Comment: 10+ range PSA February 2017 c/w increasing PSA per patient biopsy ? 7 negative. Sees urology at [facility] 06/13/2017 Encounters Date Type Department Care Team Description 07/19/2024 11:00 AM EDT Ancillary Procedure [facility] [address] [place] [address] Chronic systolic heart failure (CMS/HCC V24, CMS/HCC V28); Dizziness; S/P aortic valve replacement with bioprosthetic valve 07/13/2024 1:40 PM EDT Office Visit [facility] [address] [place] [phone] Meghan Hartley NP Chronic systolic heart failure (CMS/HCC V24, CMS/HCC V28) (Primary Dx); Dilated cardiomyopathy (CMS/HCC V24, CMS/HCC V28); Stenosis of prosthetic aortic valve, subsequent encounter; S/P aortic valve replacement with bioprosthetic valve; Coronary artery disease involving mcgrath coronary artery of mcgrath heart without angina pectoris; Hyperlipidemia, unspecified hyperlipidemia type; Essential (primary) hypertension; Irregular heart rate; Dizziness; Hospital discharge follow-up 07/06/[address] [facility] [address] [place] [address] Meghan Hartley NP 06/11/2024 Telephone Gastroenterology - [address] [phone] Olga Law MA Results 06/07/2024 2:25 PM EDT Anesthesia Event [facility] [address] [place] [phone] George Ulloa DO 06/07/2024 1:56 PM EDT - 06/07/2024 11:59 PM EDT Hospital Encounter [facility] [address] [place] [phone] Ricardo Jordan CRNA Weinstein, Peter J, MD Walsh, Michael, DO Nausea & vomiting Discharge Disposition: Home or Self Care 06/06/2024 Telephone Gastroenterology - [address] [phone] Vinod Alexis MD SPECIAL PROCEDURE R/S 06/04/2024 1:30 PM EDT Consult Gastroenterology - [address] [phone] Joanna Roque PA Nausea and vomiting, unspecified vomiting type (Primary Dx); Weight loss 05/31/2024 Telephone Gastroenterology - [address] [phone] Vinod Alexis MD from Last 3 Months Surgical History Surgery Date Site/Laterality Comments OTHER SURGICAL HISTORY [place] CATHER OTHER SURGICAL HISTORY REMOVAL OF MOLE OF SKIN BY EXCISION OTHER SURGICAL HISTORY CLOSURE OF PATENT FORAMAN OVALE OTHER SURGICAL HISTORY HISTORY OF YAG OTHER SURGICAL HISTORY LASER IRIDOTOMY OTHER SURGICAL HISTORY AVR TRANSURETHRAL RESECTION OF PROSTATE CHOLECYSTECTOMY 09/29/2023 - 10/29/2023 COLONOSCOPY 07/26/2023 ESOPHAGOGASTRODUODENOSCOPY 05/29/2022 - 06/27/2022 CHOLECYSTECTOMY Medical History Medical History Date Comments Erectile dysfunction DX:Erectile dysfunction Elevated PSA DX:Elevated PSA Bilateral hearing loss DX:Bilate ral hearing loss BPH (benign prostatic hyperplasia) DX:BPH (benign prostatic hyperplasia) Diverticula of small intestine D X:Diverticula of small intestine Diverticulosis DX:Diverticulosi s Diarrhea DX:Diarrhea Colon adenoma DX:Colon adenoma Classic migraine with aura DX:Cl assic migraine with aura Internal hemorrhoids DX:Internal hemorrhoids Gout DX:Gout Nipple pain DX:Nipple pain Parkinson disease ([facility] V 24, [facility] V28) DX:Parkinson disease (HCC) Plantar fasciitis, right DX:Plan tar fasciitis, right Psoriasis DX:Psoriasis Sliding hiatal hernia DX:Sliding hiatal hernia Melanocytic neoplasm of skin DX: Melanocytic neoplasm of skin Low HDL (under 40) DX:Low HDL (u nder 40) Glaucoma suspect DX:Glaucoma ab pect Esophageal dysmotility DX:Esopha geal dysmotility AMS (altered mental status) DX:A MS (altered mental status) Choledocholithiasis with cholecystitis DX:Choledocholithiasis with cholecystitis Lactic acid acidosis DX:Lactic a mikel acidosis Toxic metabolic encephalopathy D X:Toxic metabolic encephalopathy E coli bacteremia DX:E coli bact eremia LFTs abnormal DX:LFTs abnormal Sleep apnea DX:Sleep apnea Cardiomyopathy ([facility] V24, [facility] V28) CHF (congestive heart failur e) ([facility] V24, [facility] V28) History of transcatheter aor tic valve replacement (TAVR) Social History Tobacco Use Types Packs/Day Years Used Date Smoking Tobacco: Never Smokeless Tobacco: Never Alcohol Use Standard Drinks/Week Comments Not Currently 0 (1 standard drink = 0.6 oz pur e alcohol) Interpersonal Safety Answer Date Record ed Physical Abuse 06/07/2024 Verbal Abuse 06/07/2024 Sex and Gender Information Value Date Recorded Sex Assigned at Male 06/07/2024 1:53 PM EDT Legal Sex Male 5:52 AM EST Gender Identity Male 06/07/2024 1:53 PM EDT Sexual Orientation Straight 06/07/2024 1: 53 PM EDT Obstetrics History Last Filed Vital Signs Vital Sign Reading Time Taken Comments Blood Pressure 150/82 07/19/2024 11:13 AM EDT Pulse 77 07/13/2024 1:44 PM EDT Temperature 36.6 ??C (97.9 ??F) 06/07/2024 2:24 PM ED T Respiratory Rate 16 06/07/2024 3:11 PM EDT Oxygen Saturation 96% 07/13/2024 1:44 PM EDT Inhaled Oxygen Concentration - - Weight 77.6 kg (171 lb) 07/19/2024 11:13 AM EDT Height 190.5 cm (6' 3 ) 07/19/2024 11:13 AM EDT Body Mass Index 21.37 07/19/2024 11:13 AM EDT Plan of Treatment Upcoming Encounters Date Type Department Care Team (Late st Contact Info) Description 08/02/2024 1:30 PM EDT Office Visit Gastroenterology - 299 [place] [address] [place] [phone] Joanna Roque PA [address] [place] [address] 08/21/2024 3:10 PM EDT Office Visit [facility] - [facility] [address] [facility] [address] [place] [phone] Meghan Hartley NP [address] [address] 11/16/2024 9:50 AM EDT Office Visit [facility] - [facility] [address] [phone] Mitchell Ruiz MD [address] [facility] [address] [place] [address] Health Maintenance Due Date Last Done Comments Depression Screening 02/06/2022 Hepatitis C Screening 02/06/2022 Social Influencers of Health Screening 02/06/2022 Medicare Annual Wellness Visit 09/22/2023 09/21/2022 DTaP,Tdap,and Td Vaccines (4 - Td or Tdap) 04/10/2024 04/10/2014, 04/10/2014, 03/24/2011 COVID-19 Vaccine (8 - Moderna risk season) 2024 12/30/2023, 02/25/2023, 09/21/2022, Additional history exists Hypertension/CHF/CAD Annual BMP Blood Test 04/23/2025 04/23/2024 Falls Risk Assessment 06/07/2025 06/07/2024 Cholesterol Screening (Lipid Panel) 04/23/2029 04/23/2024, 04/23/2024 Zoster Vaccines Completed 08/06/2019, 03/01, 02/25/2010 Pneumococcal Vaccine: 50+ Years Completed 09/21/2022, 04/09/2015, 03/24/2011, Additional history exists RSV Immunization Adult Patients Completed 02/18/2023 Influenza Vaccine Completed 12/02/2023, , 12/18/2021, Additional history exists HIB Vaccines Aged Out No longer eligi ble based on patient's age to complete this topic HPV Vaccines Aged Out No longer eligi ble based on patient's age to complete this topic Hepatitis A Vaccines Aged Out No long er eligible based on patient's age to complete this topic Hepatitis B Vaccines Aged Out No long er eligible based on patient's age to complete this topic IPV Vaccines Aged Out No longer eligi ble based on patient's age to complete this topic MMR Vaccines Aged Out No longer eligi ble based on patient's age to complete this topic Meningococcal ACWY Vaccine Aged Out N o longer eligible based on patient's age to complete this topic Meningococcal B Vaccine Aged Out No l onger eligible based on patient's age to complete this topic RSV Immunization Patients Under 20 months Aged Out No longer eligible based on patient's age to complete this topic Varicella Vaccines Aged Out No longer eligible based on patient's age to complete this topic Procedures Procedure Name Priority Date/Time Associated Diagnosis Comments TRANSTHORACIC ECHOCARDIOGRAM (TTE) COMPLETE Routine 07/19/2024 11:13 AM EDT Chronic systolic heart failure (CMS/HCC V24, CMS/HCC V28) Dizziness S/P aortic valve replacement with bioprosthetic valve ECG 12-LEAD Routine 07/13/2024 10:21 PM EDT Irregular heart rate EGD Routine 06/07/2024 2:50 PM EDT Nausea & vomiting TISSUE EXAM Routine 06/07/2024 2:41 PM EDT Nausea & vomiting BASIC METABOLIC PANEL Routine 04/23/2024 7:25 AM EST Chronic fatigue LDL CHOLESTEROL, DIRECT Routine 04/23/2024 7:25 AM EST from Last 3 Months or Most Recently Relevant to Health Maintenance Results * (ABNORMAL) TRANSTHORACIC ECHOCARDIOGRAM (TTE) COMPLETE (07/19/2024 11:13 AM EDT) BSA 2.03 m2 CV PACS LV EDV (A2C) 171 mL CV PACS LV EDV (A4C) 136 mL CV PACS LV Diastolic Volume (BP) 153(A) 62 - 150 mL CV PACS LV ESV (A2C) 98 mL CV PACS LV ESV (A4C) 77 mL CV PACS LV Systolic Volume (BP) 89(A) 21 - 61 mL CV PACS IVSD 1.4(A) 0.6 - 1.0 cm CV PACS LVIDD 5.5 4.2 - 5.8 cm CV PACS LVIDS 3.7 2.5 - 4.0 cm CV PACS LVOT Mean Grad 3 mmHg CV PACS LVOT Peak VTI 25.6 cm CV PACS LVOT Mean Calvin 0.8 m/s CV PACS LVOT Peak Calvin 1.2 m/s CV PACS LVOT Peak Gradient 6 mmHg CV PACS LVPWD 1.4(A) 0.6 - 1.0 cm CV PACS MV E' Tissue Velocity Lateral 11 cm/s CV PACS MV E' Tissue Velocity Septal 5 cm/s CV PACS Ejection Fraction (A2C) 43 % CV PACS Ejection Fraction (A4C) 43 % CV PACS Ejection Fraction (BP) 42 % CV PACS Left Atrium Minor [place] 6.7 cm CV PACS Left Atrium Major [place] 6.7 cm CV PACS LA Area Sys (A2C) 31 cm2 CV PACS LA Area Sys (A4C) 30 cm2 CV PACS LA Volume (BP) 111 mL CV PACS RA Area 23.6 cm2 CV PACS RA 2D Volume 70 mL CV PACS AV Mean Gradient 22 mmHg CV PACS Ao VTI 70.2 cm CV PACS AV Peak Calvin 3.1 m/s CV PACS AV Peak Gradient 38 mmHg CV PACS MR PISA Nyquist Calvin 35 cm/s CV PACS PISA MR Radius 0.40 cm CV PACS MR VTI 213.0 cm CV PACS MR PISA Max Velocity 0.1 m/s CV PACS MR Peak Gradient 137 mmHg CV PACS E Wave Deceleration Time 264(A) 119 - 242 ms CV PACS MV Peak A Calvin 0.60 m/s CV PACS MV Peak E Calvin 0.40 m/s CV PACS PISA MR EROA 0.06 cm2 CV PACS PISA Regurgitant Volume 12 mL CV PACS RV Diastolic Basal Dimension 4.1 2.5 - 4.1 cm CV PACS RV S' 10 cm/s CV PACS TAPSE 18 mm CV PACS TR Peak Velocity 2.20 m/s CV PACS TR Peak Gradient 18 mmHg CV PACS LV ESV Index (A4C) 38 mL/m2 CV PACS LV EDV Index (A4C) 66 mL/m2 CV PACS E/E' Ratio Septal 8 CV PACS E/E' Ratio Averaged 6 CV PACS Relative Wall Thickness ratio 0.51(A) 0.24 - 0.42 CV PACS LVOT:AV VTI Index 0.36 CV PACS FS 33 % CV PACS LV Mass 2D 338(A) 96 - 200 g CV PACS RA 2D Volume Index 34 18 - 32 mL/m2 CV PACS LVIDD Index 2.68 cm/m2 CV PACS LVIDS Index 1.80 cm/m2 CV PACS AV Velocity Ratio 0.39 CV PACS E/A Ratio 0.7 0.8 - 2.0 CV PACS E/E' Ratio Lateral 4 CV PACS LV Systolic Volume Index (BP) 43(A) 11 - 31 mL/m2 CV PACS LV Diastolic Volume Index (BP) 75(A) 34 - 74 mL/m2 CV PACS LA Volume Index (BP) 54 mL/m2 CV PACS LV Mass Index 2D 165 50 - 102 g/m2 CV PACS LV EDV Index (A2C) 83 mL/m2 CV PACS LV ESV Index (A2C) 48 mL/m2 CV PACS LA Volume (A-L) 76 mL CV PACS LA Volume Index (A-L) 37 mL/m2 CV PACS RV Free Wall Peak S' 10 cm/s CV PACS RA Major [place] 6.5 cm CV PACS RA Major [place] Index 3.2(A) 2.1 - 2.7 cm/m2 CV PACS MV PHT 77 ms CV PACS MV Regurgitant Volume 12 mL CV PACS LV EF MOD 2C 43 % CV PACS LV EF 4C A-L 43 % CV PACS LV EDV 4C A-L 135 mL CV PACS LV Length Sys (A4C) 8.5 cm CV PACS LV Length Couch (A4C) 9.9 cm CV PACS Mitral Reguritant Flow 2 CV PACS Left Ventricular Stroke Volume by 2-D Biplane-MOD 64 mL CV PACS Aortic Sinus Valsalva 4.3 cm CV PACS LVOT Diameter 2.4 cm CV PACS LVOT Area 4.5 cm2 CV PACS LVOT Stroke Volume 117 mL CV PACS LVOT Stroke Index 57 mL/m2 CV PACS AV Area 2D 1.8 cm2 CV PACS ROHAN Index (2D) 0.88 cm2/m2 CV PACS AV Area Continuity Equation 1.6 cm2 CV PACS ROHAN Index (VTI) 0.80 cm2/m2 CV PACS LVOT flow 362 mL/s CV PACS AV Area Index 0.9 CV PACS Anatomical Region Laterality Modality Ultrasound Narrative 07/25/2024 1:29 PM EDT ?Global hypokinesis with an EF in the range of 40%. ??Mild LVH. ?Normal RV function. ?Enlarged left atrium. ?Bioprosthetic aortic valve with a mean gradient of 22 and a VTI ratio of 0.36. ??The valve is mildly calcified. ??Leaflet mobility looks fairly good. ??These values are similar to values going back to at least 2021. ?In July 2021 I thought the EF was 35 to 40%. ??The mean gradient was 26. And the acceleration time 150 ms. ??These values are actually very similar to an echo from 2016. ??Mean gradient was 22. ??Cardiac function was similar perhaps slightly more vigorous in 2016. Left Ventricle Left ventricle cavity size is normal. There is mild hypertrophy. Systolic function is mildly/moderately decreased. The quantitative EF by 2D Hsu biplane is 42%. Global LV hypokinesis is present. Indeterminate diastolic function. Right Ventricle Right ventricle cavity appears in the upper limits of normal. Systolic function is normal. Left Atrium Left atrium volume index is severely increased. Right Atrium Right atrium cavity is dilated. IVC/SVC Inferior vena cava was not well visualized. Mitral Valve The leaflets are mildly thickened. There is annular calcification. There is mild regurgitation with a centrally directed jet. There is no evidence of mitral valve stenosis. Tricuspid Valve The leaflets exhibit normal excursion. There is mild regurgitation. There is no evidence of tricuspid valve stenosis. Aortic Valve The valve has been surgically replaced. There is a bioprosthetic valve. The prosthetic valve appears to be functioning normally. There is trace regurgitation. The aortic valve peak velocity is 3.1 m/s. The mean gradient is 22 mmHg. The VTI ratio 0.36. No acceleration time given. Pulmonic Valve The pulmonic valve was not well visualized. There is trace pulmonic valve regurgitation. There is no evidence of pulmonic valve stenosis. Ascending Aorta The Sinus of Valsalva is (4.3 cm). The ascending aorta was not well visualized. Pericardium Pericardium appears normal. Study Details Overall the study quality was adequate. Difficult acoustic PLAX/PSAX windows. Meghan Hartley NP CV ECHO PROCEDURES Fi nal Result * ECG 12 lead (07/13/2024 10:21 PM EDT) [facility] Signature Ventricular Rate ECG 58 BPM GEMUSE Atrial Rate 58 BPM GEMUSE P-R Interval 200 ms GEMUSE QRS Duration 116 ms GEMUSE Q-T Interval 456 ms GEMUSE QTc 447 ms GEMUSE P Wave [place] 45 degrees GEMUSE R [place] -31 degrees GEMUSE T [place] 55 degrees GEMUSE ECG Interpretation Sinus bradycardia Left axis deviation Possible Anterior infarct , age undetermined Abnormal ECG When compared with ECG of 04-SEP-2013 07:04, No significant change was found Confirmed by aPrish RUIZ JAY ([id number]) on 07/17/2024 8:56:20 AM GEMUSE 07/13/2024 2:32 PM EDT 07/17/2024 8:56 AM EDT Meghan Hartley [employer] ECG ORDERABLES Edite d Result - Final GEMUSE * EGD Anesthesia - MAC; [facility] ENDOSCOPY (06/07/2024 2:50 PM EDT) Anatomical Region Laterality Modality Endoscopy 06/07/2024 2:16 PM EDT Impressions 06/07/2024 2:50 PM EDT - Normal middle third of esophagus. Biopsied. ? - Moderate Schatzki ring. Dilated. ? - Gastritis with hemorrhage. Biopsied. ? - Normal examined duodenum. Biopsied. Recommendation: ?- Await pathology results. ? - Use a proton pump inhibitor PO daily. Narrative 06/07/2024 2:[address] [facility] Patient Name: Erin Alexander Procedure Date: 06/07/2024 2:16 PM Date of : 1945 Age: 78 Room: ROOM 15 Gender: Male Note Status: Finalized Attending MD: Vinod Alexis MD, Procedure Date No Time: 06/07/2024 Procedure: ? Upper GI endoscopy Indications: ? Dyspepsia, Dysphagia, Weight loss Providers: ? Vinod Alexis MD Referring MD: ?Vinod Alexis MD Medicines: ? Propofol per Anesthesia Complications: ? No immediate complications. Estimated Blood Loss: ? Estimated blood loss was minimal. Procedure: ? Pre-Anesthesia Assessment: ? - ASA Grade Assessment: III - A patient with severe ? systemic disease. ? After obtaining informed consent, the endoscope was ? passed under direct vision. Throughout the procedure, ? the patient's blood pressure, pulse, and oxygen ? saturations were monitored continuously.The Endoscope ? was introduced through the mouth, and advanced to the ? second part of duodenum. The upper GI endoscopy was ? accomplished without difficulty. The patient tolerated ? the procedure well. Findings: ?The middle third of the esophagus was normal. Biopsies ? were taken with a cold forceps for histology. ? A moderate Schatzki ring was found in the distal ? esophagus. A TTS dilator was passed through the scope. ? Dilation with an 18-19-20 mm balloon dilator was ? performed to 20 mm. There was heme and a tear ? Segmental mild inflammation with hemorrhage ? characterized by congestion (edema), erosions, ? erythema and friability was found in the gastric ? antrum. Biopsies were taken with a cold forceps for ? histology. ? The examined duodenum was normal. Biopsies were taken ? with a cold forceps for histology. Procedure Code(s): ? --- Professional --- ? 00771, Esophagogastroduodenoscopy, flexible, ? transoral; with transendoscopic balloon dilation of ? esophagus (less than 30 mm diameter) Diagnosis Code(s): ? --- Professional --- ? K22.2, Esophageal obstruction ? K29.71, Gastritis, unspecified, with bleeding ? R10.13, Epigastric pain ? R13.10, Dysphagia, unspecified ? R63.4, Abnormal weight loss CPT copyright 2020 [employer]. All rights reserved. The codes documented in this report are preliminary and upon athletic turf worker review may be revised to meet current compliance requirements. Vinod Alexis MD 06/07/2024 2:49:52 PM This report has been signed electronically.Vinod Alexis MD Number of Addenda: 0 Note Initiated On: 06/07/2024 2:16 PM Scope In: Scope Out: ? Endoscopy Department at [facility] - [address] [place] [address], ? [place] [address] Procedure Note Vinod Alexis MD - 06/07/2024 [facility] GI Patient Name: Erin Alexander Procedure Date: 06/07/2024 2:16 PM Date of : 1945 Age: 78 Room: ROOM 15 Gender: Male Note Status: Finalized Attending MD: Vinod Alexis MD, Procedure Date No Time: 06/07/2024 Procedure: Upper GI endoscopy Indications: Dyspepsia, Dysphagia, Weight loss Providers: Vinod Alexis MD Referring MD: Vinod Alexis MD Medicines: Propofol per Anesthesia Complications: No immediate complications. Estimated Blood Loss: Estimated blood loss was minimal. Procedure: Pre-Anesthesia Assessment: - ASA Grade Assessment: III - A patient with severe systemic disease. After obtaining informed consent, the endoscope was passed under direct vision. Throughout theprocedure, the patient's blood pressure, pulse, and oxygen saturations were monitored continuously.TheEndoscope was introduced through the mouth, and advanced tothe second part of duodenum. The upper GI endoscopy was accomplished without difficulty. The patienttolerated the procedure well. Findings: The middle third of the esophagus was normal.Biopsies were taken with a cold forceps for histology. A moderate Schatzki ring was found in the distal esophagus. A TTS dilator was passed through thescope. Dilation with an 18-19-20 mm balloon dilator was performed to 20 mm. There was heme and a tear Segmental mild inflammation with hemorrhage characterized by congestion (edema), erosions, erythema and friability was found in the gastric antrum. Biopsies were taken with a cold forceps for histology. The examined duodenum was normal. Biopsies weretaken with a cold forceps for histology. Procedure Code(s): --- Professional --- 58932, Esophagogastroduodenoscopy, flexible, transoral; with transendoscopic balloon dilation of esophagus (less than 30 mm diameter) Diagnosis Code(s): --- Professional --- K22.2, Esophageal obstruction K29.71, Gastritis, unspecified, with bleeding R10.13, Epigastric pain R13.10, Dysphagia, unspecified R63.4, Abnormal weight loss CPT copyright 2020 [employer]. All rights reserved. The codes documented in this report are preliminary and upon athletic turf worker reviewmay be revised to meet current compliance requirements. Vinod Alexis MD 06/07/2024 2:49:52 PM This report has been signed electronically.Vinod Alexis MD Number of Addenda: 0 Note Initiated On: 06/07/2024 2:16 PM Scope In: Scope Out: Endoscopy Department at [facility] - [address] [place] [phone] IMPRESSION: - Normal middle third of esophagus. Biopsied. - Moderate Schatzki ring. Dilated. - Gastritis with hemorrhage. Biopsied. - Normal examined duodenum. Biopsied. Recommendation: - Await pathology results. - Use a proton pump inhibitor PO daily. Vinod Alexis MD GI~PROCEDURE ORDERABLES Fin al Result * Tissue exam (06/07/2024 2:41 PM EDT) Final Diagnosis A. Duodenum, biopsy: - Small bowel mucosa without diagnostic histopathologic change. - Villous architecture is generally preserved and there is no increase in intraepithelial lymphocytes. B. Stomach, antrum, biopsy: - Gastric antral-type mucosa with chronic gastritis. - No active gastritis and no intestinal metaplasia identified. - No Helicobacter pylori are identified on hematoxylin and eosin stained sections. C. Mid-esophagus, biopsy: - Esophageal squamous mucosa without diagnostic histopathologic change. - No intraepithelial eosinophils are identified. 06/08/2024 12:06 PM EDT [facility] Gross Description A. Small Intestine, Duodenum, biopsy: Labeled duodenum biopsy . Received in formalin are two irregular ren mucosal tissue fragments, measuring 0.2 cm and 0.4 cm in greatest dimension, which are wrapped in paper and submitted in toto one cassette, two pieces, multiple levels on one slide. B. Gastric, Antrum, biopsy: Labeled gastric ant biopsy . Received in formalin is a 0.3 cm irregular ren mucosal tissue fragment which is wrapped in paper and submitted in toto in one cassette, one piece, multiple levels on one slide. C. Esophagus, mid biopsy: Labeled esophagus mid . Received in formalin are two irregular pink-white mucosal tissue fragments, each measuring approximately 0.3 cm in greatest dimension, which are wrapped in paper and submitted in toto in one cassette, two pieces, multiple levels on one slide. SHELLI 06/08/2024 12:06 PM EDT [facility] Disclaimer Unless otherwise specified, all tissue is 10% NB formalin fixed and paraffin embedded. 06/08/2024 12:06 PM EDT [facility] Tissue Duodenal structure / Unknown 06/07/2024 2:41 PM EDT 06/07/2024 4:02 PM EDT Tissue specimen (specimen) Pyloric antrum structure / Unknown 06/07/2024 2:41 PM EDT 06/07/2024 4:02 PM EDT Tissue specimen (specimen) Esophageal structure / Unknown 06/07/2024 2:43 PM EDT 06/07/2024 4:02 PM EDT us Vinod Alexis MD LAB PATHOLOGY ORDERABLES Fi nal Result [facility] [address] [place] [address], * LDL cholesterol, direct (04/23/2024 7:25 AM EST) LDL Chol. (Direct) 71 0 - 99 mg/dL [facility] 1 04/23/2024 7:25 AM EST 04/23/2024 Narrative [facility] 1 - 04/24/2024 8:07 AM EST Performed at: ??01 - [facility] [address] [place], [place] ??[id number] Inspector Process: Lorin Christianson MD, Phone: ??[phone] Meghan Hartley [employer] LAB BLOOD ORDERABLES Final Result [facility] 1 * (ABNORMAL) Basic metabolic panel (04/23/2024 7:25 AM EST) [facility] Glucose 102(H) 70 - 99 mg/dL [facility] 1 Blood Urea Nitrogen (BUN) 11 8 - 27 mg/dL [facility] 1 Creatinine 0.62(L) 0.76 - 1.27 mg/dL [facility] 1 eGFR 98 >59 mL/min/1.7 3 [facility] 1 BUN/Creatinine Ratio 18 10 - 24 [facility] 1 Sodium 140 134 - 144 mmol/L [facility] 1 Potassium 4.5 3.5 - 5.2 mmol/L [facility] 1 Chloride 102 96 - 106 mmol/L [facility] 1 Carbon Dioxide 24 20 - 29 mmol/L [facility] 1 Calcium 9.2 8.6 - 10.2 mg/dL [facility] 1 Blood Venous blood specimen / Unknown 04/23/2024 7:25 AM EST 04/23/2024 Narrative [facility] 1 - 04/24/2024 4:06 AM EST Performed at: ??01 - [facility] [address] [place], [place] ??[id number] Inspector Process: Lorin Christianson MD, Phone: ??[phone] Meghan Hartley NP LAB BLOOD ORDERABLES Final Result [facility] 1 from Last 3 Months or Most Recently Relevant to Health Maintenance Insurance [facility]IC[facility] Care Teams Piggyback Clerk Relationship Specialty Start Date End Date Liane León MD [address] [place] [phone] PCP - General Internal Medicine 04/19/24
== END 2024-07-26 11:40 | disposition home or self-care (01) ==
LOC: HO.HSMS 10:07
PROVIDERS: PCP Internal Medicine; Visit Provider Nurse Practitioner Family
DX: G20.A2 Parkinson's disease without dyskinesia, with fluctuations (principal); R42 Dizziness and giddiness; R63.4 Abnormal weight loss; R51.9 Headache, unspecified; K75.0 Abscess of liver; B96.89 Other specified bacterial agents as the cause of diseases classified elsewhere; K76.89 Other specified diseases of liver
CPT/HCPCS: 99214; G2211

== ENCOUNTER → 2024-07-26 10:06 | Outpatient (BNVA) | payer MEDICARE, SELFPAY | PROVIDERS: PCP Internal Medicine; Visit Provider Nurse Practitioner Family | DX: G20.A2 Parkinson's disease without dyskinesia, with fluctuations (principal); R42 Dizziness and giddiness; R63.4 Abnormal weight loss; R51.9 Headache, unspecified; K75.0 Abscess of liver; B96.89 Other specified bacterial agents as the cause of diseases classified elsewhere; K76.89 Other specified diseases of liver | CPT/HCPCS: 99212 ==

== ENCOUNTER 2024-12-20 09:53 | Outpatient (AMB) | payer MEDICARE, SELFPAY ==
--- NOTE | 2024-12-20 09:54 | A.OFFVIS_ITS ---
Vital Signs 12/20/24 09:55 Height 6 ft 3 in Weight 185 lb 4 oz BMI 23.2 BP 110/64 Blood Pressure Location Rt brachial Position Sitting Pulse 50 Pulse Source Pulse Oximeter Pulse Oximetry (%) 96 Oxygen Delivery Method Room Air Intake Visit Reasons: F/U Parkinson's pt Intake Note: Follow up Parkinson's, Orthostatic lightheadedness and headache - pt Child Care Teacher Required: No Accompanied by: Spouse Allergies oxycodone (OXYCODONE) Allergy (Unknown, Verified 12/20/24 09:55) UNK Liwcsfc-TMC-LcD Reductase Inhibitor (SDSTDLT-TJL-KLY REDUCTASE INHIBITOR) Allergy (Unknown, Verified 12/20/24 09:55) UNK LEVOQUIN Allergy (Unknown, Uncoded 04/04/23 10:19) UNK LEVOSTATIN Allergy (Unknown, Uncoded 04/04/23 10:19) UNK Medication List - Last Reconciled 12/20/24 by Yessi Brown MD amoxicillin 1,000 mg PO BID PRN aspirin (Adult Aspirin Regimen) 81 mg PO DAILY carbidopa-levodopa 25-100 mg (Sinemet) 1 tab orally 5 Times per day; 90 days finasteride 5 mg PO DAILY ketorolac 0.5% drps ophthalmic (eye) lactobacillus combination no.9 (Adult 50 Plus Probiotic) 4,000 mmu cells PO DAILY losartan 25 mg PO DAILY mecobalamin (vitamin B12) (B12 Active) 1,000 mcg PO DAILY metoprolol succinate ER 12.5 mg PO DAILY tobramycin 0.3% drps ophthalmic (eye) HPI Comments Details: 78-yr-old male presents for f/u for Parkinson's. Accompanied by his , Swathi.He has been not feeling well for past 1 year related to sepsis .He was doing better the past 5 mths after antibiotics . New problem- fatigue is worse now, wakes up at 6am feels oK and at 9AM he feels very tired- 10am nap he feels good at 3 pm . He also had body pain, right upper quadrant and nausea , lack of appetite. he has an urgent appt with PCP. his blood pressure is running low as low as 80/40 Current PD med tx: CD-LD 25-100mg 1 tab 5 times per day- 6am, 9am, 12pm, 3pm, 6pm. Can be more shaky after 9am dose. Previous trials- 1st tried on rasagiline, he denies intolerance, was switched to carbidopa levodopa. History from 06/2024 -Pt reports he underwent interval recent hospitalization for liver abscesses. Per [facility], [place] note initial MRI showed new abscess locations compared to previous infections, and the patient eventually underwent drainage with cultures that grew Citrobacter freundii, which was susceptible to tetracyclines, aminoglycosides, cefepime, ceftriaxone, and carbapenems, he was initially started on Zosyn, but due to lack of susceptibility data for Zosyn, antibiotic therapy was switched to ertapenem; imaging also revealed hepatic simple cysts, the largest measuring 10.5 cm, and while IR initially attempted drainage without success, they were able to aspirate a small amount of fluid and planned for a return with CT guidance; the IR drain was ultimately removed on 07/20 following complete resolution of both subcapsular and left hepatic lobe collections, and catheters were removed without complication; throughout the course, the patient denied fever, chills, nausea, or diarrhea, and a PICC line was placed without evidence of swelling, erythema, or drainage; a tentative plan for 4 weeks of IV ertapenem was established, with completion scheduled for 07/24 . Pt reports within 24 hrs of starting the ABT for treatment of above liver abscesses, he started to feel better and was able to eat again. He continues to eat better, taking protein supplements and plans to start a probiotic. He has gained about 6 lb since hospital discharge. Patient and canceled follow-up PFTs and swallow study, as patient is eating better, not having any difficulty swallowing, and he is breathing better since hospital discharge. His energy level overall is in increasing slowly. he was discharged home with PT, however they stated that his gait is okay and he was discharge. Pt is ambidextrous- writes, uses a bow and arrow right handed, shoots a gun left handed. Can hammer either hand. ADL status: Ind Hypophonia: May be hoarse Hyposmia: Intact Dysphagia: Denies Drooling: Noticing more drooling. Orthostatic lightheadedness: Comes and goes. His entresto and metoprolol were stopped during the hospitalization due to orthostatic lightheadedness. : Improved, no leakage. Constipation: Had constipation, but has had some loose stools overall the last few days. Slowness: Walks slower overall. Freezing episodes: Denies Tremor: BUE L > R rest tremor Stiffness: Denies Gait changes: Slower walking. Can be off-balance with turns. No interval falls. Sleep difficulty: Waking up 2 x's per night to void. Slept walked as a child. No recent parasomnias. Memory impairment: Overall ok. Stable STM lapses, usually if not important. Wearing HAs. Plays solitaire on the computer. Hallucinations: Denies Usual exercise: Trying to walk. PFSH Surgical History S/P patent foramen ovale closure H/O transurethral resection of prostate H/O heart surgery Family History Father CHF (congestive heart failure) Emphysema lung Mother Pneumonia Brother Tremor Social History Alcohol intake: never Patient Tobacco Use Status: Never used Tobacco Physical Exam Vital Signs: Last Vital Signs Pulse 50 12/20/24 09:55 BP 110/64 12/20/24 09:55 Pulse Ox 96 12/20/24 09:55 Oxygen Delivery Method Room Air 12/20/24 09:55 BMI result Body Mass Index 23.2 Const General: cooperative and no acute distress Resp Effort & Inspection: normal respiratory effort and able to speak in complete sentences Neuro Other: General: Alert and oriented x3 Expression: Decreased facial expression, mild left lower facial asymmetry Voice: normal Tremor: RUE rest tremor, mild BUE postural tremor. Foot taps induced left hand spread of movement Tone: Mild left wrist tone Dyskinesia: None FFM: Mildly decreased Foot taps: Decreased mildly Gait: Stand slowly, slight stoop, no right arm swing, decreased left arm swing, steady gait. Psych: Pleasant affect Assessment & Plan Assessment & Plan (1) Parkinson's disease without dyskinesia: Code(s): G20.A1 - Parkinson's disease without dyskinesia, without mention of fluctuations Category: Medical (2) Orthostatic lightheadedness: Code(s): R42 - Dizziness and giddiness Category: Medical (3) Weight loss: Comment: Improving Code(s): R63.4 - Abnormal weight loss Category: Medical Plan Decrease carbidopa-levodopa 25-100 mg 1 tab 4 times per day, may take an extra 1/2-1 tab per day as needed. For orthostatic lightheadedness: small frequent meals with fluids * Entresto and metoprolol were discontinued due to orthostatic lightheadedness while he was recently hospitalized. * Ensure adequate fluid intake, electrolyte replacement beverages, such as liquid IV, Gatorade or Powerade. * Encouraged patient to stand slowly to reduce symptoms of orthostatic lightheadedness. * follow-up with cardiology as scheduled * Consider droxidopa Encouraged patient to turn slowly- to reduce risk for becoming off balance. Continue to slowly increase regular physical activity- take rests as needed. Continue cognitively stimulating activities. Monitor headaches and visual episodes.- better Continue ASA 81mg qd. F/u with PCP and gI for upper quadrant pain and resolution of liver abscess ? Follow-up in 6 months or sooner as needed Coding Level of Care Code Est Pt Level 4 (53482) Complex EM visit Add On G2211 Diagnoses Parkinson's disease without dyskinesia G20.A1 Orthostatic lightheadedness R42 Weight loss R63.4
[2024-12-20 09:55] VITALS: BP 110/64; PULSE 50; O2SAT 96; BMI 23.2
--- OUTSIDE RECORDS SUMMARY | 2024-12-20 11:26 | XMS_ITS | Encounter Summary ---
Author Organization [facility] Address [address] [facility] [address] [place] [id number] Phone Care Team Providers Care Broadcast Meteorologist Name Role Phone Cheryl Dickson MD Primary Care Provider [phone] Encounter Details Date Type Department Care Team (Late st Contact Info) Description 01/12/2023 Procedure Pass OR Admitting Dept - Virtual Department [address] [place] [address] Social History Tobacco Use Types Packs/Day Years Used Date Smoking Tobacco: Never Smokeless Tobacco: Never Comments:Ski Guide 32 year s (2022) Alcohol Use Standard Drinks/Week Comments Never 0 (1 standard drink = 0.6 oz pur e alcohol) Education Answer Date Recorded Are you interested in more education? Not on lynnette e 06/25/2022 Are you concerned about learning? Not on file 06/25/2022 No 06/25/2022 No 06/25/2022 Digital Access Answer Date Recorded No 07/20/2022 No 07/20/2022 Reliable internet access at home? Not on file 07/20/2022 Device with a working camera? Not on file Sex and Gender Information Value Date Recorded Sex Assigned at Male 10/19/2021 11:25 AM EDT Legal Sex Male 5:18 PM EDT Gender Identity Male 10/19/2021 11:25 AM EDT Sexual Orientation Straight 10/19/2021 11 :25 AM EDT documented as of this encounter Plan of Treatment Not on file documented as of this encounter Visit Diagnoses Not on filedocumented in this encounter Care Teams Broadcast Meteorologist Relationship Specialty Start Date End Date Cheryl Dickson MD [address] [place] [address] [email or web address] PCP - General Internal Medicine 02/15/19 documented as of this encounter Additional Source Comments The information contained in this document represents components of the legal health record. It is not the complete legal health record.[facility]
--- OUTSIDE RECORDS SUMMARY | 2024-12-20 11:26 | XMS_ITS | Clinical Summary ---
Author Organization [facility] [employer] [facility] Address [address] [place] [address] Phone Care Team Providers Care Patient Escort Name Role Phone Liane León MD Primary Care Provider Allergies Active Allergy Reactions Criticality Noted Date Comments Ceftriaxone 01/20/2023 Levofloxacin Rash High 11/28/2013 Niacin Flushing,Other 11/28/2013 Flushing Oxycodone 01/20/2023 Oxycodone-Acetaminophen 06/13/2017 Spironolactone 01/20/2023 Eslnomv-Xfd-Tlv Reductase Inhibitors 06/13/2017 Medications carbidopa-levodopa (PARCOPA) 25-100 [...] 0.5 tablets (10 mg total) by mouth. 5 Active calcipotriene-dres sing 0.005 % kit Apply topically. 7 Active omeprazole (PriLOSEC) [address] capsule Take 1 capsule (20 mg total) by mouth 1 (one) time each day. Do not crush or chew. Active ferrous sulfate 325 mg (65 mg elemental iron) tablet Take 1 tablet (325 mg total) by mouth. 5 Active ascorbic acid, vitamin C, 500 mg capsule Take 500 mg by mouth. 5 Active calcium citrate (CALCITRATE) 950 mg (200 mg elemental calcium) tablet Take 1 tablet (950 mg total) by mouth. Active lactobacillus acidoph-l.bulgar 100 million cell granules in packet Take 1 packet by mouth. Active metoprolol succinate (TOPROL-XL) 25 mg 24 hr tabletIndications: Coronary artery disease involving absentee-shawnee coronary artery of absentee-shawnee heart without angina pectoris,Essential (primary) hypertension,Chron ic systolic heart failure (CMS/HCC V24, CMS/HCC V28) Take 0.5 tablets (12.5 mg total) by mouth 1 (one) time each day. Do not crush or chew. 45 each 1 5 Active losartan (Cozaar) 25 mg tabletIndications: Primary hypertension Take 1 tablet (25 mg total) by mouth 1 (one) time each day. 90 each 3 5 Active Active Problems Problem Noted Date Diagnosed Date Major depressive disorder, s janna episode, mild (CMS/HCC V24) 07/24/2024 Cataract, bilateral 07/24/2024 Adjustment disorder with mixed anxiety and depre ssed mood 07/24/2024 Irregular heart rate 07/13/2024 Assessment & Plan (07/13/2024 10:22 PM EDT): Sinus bradycardia noted on ECG; will continue to monitor. Orders: ECG 12 lead Anxiety disorder, unspecified 07/05/2024 Irritability and anger 07/05/2024 Essential (primary) hypertension 07/05/2024 Assessment & Plan (08/21/2024 8:38 PM EDT): As above; he will return for a BP check with nursing in 2-3 weeks at which time we will continue to readdress the need for improved BP control with the addition of further GDMT to assist with promoting improved cardiac function. He is agreeable; in the interim, continue metoprolol. Return and ER precautions reviewed. Update labs. Orders: Comprehensive metabolic panel; Future Assessment & Plan (07/13/2024 10:22 PM EDT): [...] By: CAIN LUNA Comment: right hand, progressive 2 years at rest which decreases wit Mar 30, 2017 Entered By: CAIN LUNA Comment: PCP in the community Dr. Cheryl Harp has scheduled him for neurology in July [address] Pro Parkinson's disease ([facility] V24, [facility] V28) 0 06/04/2024 Atrial fibrillation ([facility] V24, [facility] V28) 0 04/19/2024 Assessment & Plan (08/21/2024 8:38 PM EDT): The patient carries a diagnosis of atrial [...] wishes to continue with the current plan off anticoagulation unless atrial fibrillation is documented. Assessment & Plan (04/19/2024 12:43 PM EST): [...] blood count; Future Chronic systolic heart failure (CMS/[facility] V24, CMS /HCC V28) 04/19/2024 Assessment & Plan (08/21/2024 8:38 PM EDT): Repeat echocardiogram 07/19/2024 revealed an EF of 42% by [employer]; prior to this it had been 30-35% in 11/2023 and GDMT had been limited significantly by symptomatic hypotension. He appears euvolemic on exam today and offers no symptoms to cause concern for overt heart failure. He feels he is getting stronger, but is hesitant to start further GDMT for heart failure due to his history of hypotension and significant dizziness, both of which were likely contributed to by underlying infectious process that we were not aware of at the time. We discussed this at length today and have decided that he will come in for a blood pressure check with nursing in approximately 2 to 3 weeks at which point he will bring his home cuff with him; in the interim, he will keep a record of his blood pressure and heart rate, bring these readings with us 1 to 2 hours after morning medications and when symptomatic with headache or dizziness once we have a better understanding of, bring these readings with him to his blood pressure check. The range of his blood pressures as well as symptom correlation, we will decide on the addition of further GDMT. He is agreeable to and comfortable with this plan; in the interim, continue metoprolol. I've asked the patient to call if they develop worsening symptoms of heart failure such as increased shortness of breath, new or worsening cough, increased swelling in the legs or ankles, or weight gain of more than 2 pounds in one day or 4 pounds in one week. Orders: Comprehensive metabolic panel; Future Assessment & Plan (07/13/2024 10:22 PM EDT): [...] does appear to be slowly improving. Dr. Alejandre was present today for the patient's visit; [...] T4; Future Hyperlipidemia 04/19/2024 Assessment & Plan (08/21/2024 8:38 PM EDT): LDL goal for this patient was a history of coronary artery disease is less than 70; his most recent lipid panel from 03/2024 was off any antilipid agents and LDL was 72. As above we will continue to consider reinitiating antilipid agents after updating labs. Orders: Lipid panel; Future Assessment & Plan (07/13/2024 10:22 PM EDT): [...] CMS/HCC V28 ) 04/19/2024 Assessment & Plan (08/21/2024 8:38 PM EDT): Assessment & Plan (07/13/2024 10:22 PM EDT): [...] one week. Coronary artery disease invo lving absentee-shawnee coronary artery of absentee-shawnee heart without angina pectoris 04/19/2024 Assessment & Plan (08/21/2024 8:38 PM EDT): Nonobstructive on cath 11/07/2023. He remains active within his current functional capacity secondary and offers no symptoms concerning for ischemia. He has been restarted on low dose beta blockade and is tolerating this well; he will continue this as well as baby ASA. He is not currently on any antilipid agents given his history of liver abscesses; we will update labs and consider restarting this in the near future. The patient was advised to seek emergent medical attention by calling 911 if they were to develop severe dyspnea, chest pain that did not resolve with rest, or if they were to faint. Orders: Lipid panel; Future Assessment & Plan (07/13/2024 10:22 PM EDT): [...] LDL; Future Dizziness 04/19/2024 Assessment & Plan (08/21/2024 8:38 PM EDT): As above, improved from previous. We will continue to reintroduce medical therapies cautiously and as indicated. No recent syncope or presyncope. Parkinson's may be playing a role but he is getting stronger and much less fatigued. He will call the office or seek emergent medical attention as appropriate. We will continue to readdress this as he continues to recover. Orders: Comprehensive metabolic panel; Future Assessment & Plan (07/13/2024 10:22 PM EDT): [...] prosthetic aortic valve 04/19/2024 Assessment & Plan (08/21/2024 8:38 PM EDT): The patient is status post surgical bovine aortic valve replacement in 2013 at [facility] with elevated gradients commented on as early [...] in the moderate and not severe range. Result from his most recent echocardiogram from 07/19/2024 are consistent with this as well. We reviewed signs or symptoms for which they should return to care or seek urgent medical attention for further evaluation and they verbalized understanding of this; we will continue to monitor this on serial echocardiograms. Assessment & Plan (07/13/2024 10:22 PM EDT): The patient is status post bovine aortic valve replacement in 2013 at [facility] with elevated gradients commented on as early [...] bovine aortic valve replacement in 2013 at [facility] with elevated gradients commented on as early [...] repeat testing for surveillance purposes with Dr. Alejandre and we will continue to readdress this accordingly. S/P aortic valve replacement with bioprosthetic valve 04/19/2024 Assessment & Plan (08/21/2024 8:38 PM EDT): Assessment & Plan (07/13/2024 10:22 PM EDT): [...] 2017 c/w increasing PSA per patient biopsy 7 negative. Sees urology at [facility] 06/13/2017 Encounters Date Type Department Care Team Description 11/20/2024 Telephone [facility] Cardiology [facility] [address] [place] [id number] Mitchell Alejandre MD 11/16/2024 9:50 AM EDT Office Visit [facility] [address] [place] [phone] Mitchell Alejandre MD Irregular heart rate (Primary Dx); Atrial fibrillation, unspecified type (CMS/HCC V24, CMS/HCC V28); Chronic fatigue; Chronic systolic heart failure (CMS/HCC V24, CMS/HCC V28); Dilated cardiomyopathy (CMS/HCC V24, CMS/HCC V28); Stenosis of prosthetic aortic valve, subsequent encounter; History of TIA (transient ischemic attack) 09/28/2024 Telephone [facility] [address] [place] [phone] Elizabeth Chiu MA 09/21/2024 9:30 AM EDT Clinical Support [facility] [address] [place] [phone] from Last 3 Months Surgical History Surgery [...] DX:Gout Nipple pain DX:Nipple pain Parkinson disease ([facility] V 24, [facility] V28) DX:Parkinson disease (HCC) Plantar fasciitis, right [...] DX:LFTs abnormal Sleep apnea DX:Sleep apnea Cardiomyopathy ([facility] V24, [facility] V28) CHF (congestive heart failur e) ([facility] [place]24, [facility] V28) History of transcatheter aor tic valve replacement (TAVR) Social History Tobacco Use Types Packs/Day Years Used Date Smoking Tobacco: Never Smokeless Tobacco: Never Tobacco Cessation:Counseling Given: Not Answered Alcohol Use Standard Drinks/Week Comments Not Currently 0 (1 standard drink = 0.6 oz pur e alcohol) Interpersonal Safety Answer Date Record ed Physical Abuse Unrecognized value 06/07/2024 Verbal Abuse Unrecognized value 06/07/2024 Sex and Gender Information Value Date Recorded Sex Assigned at Male 06/07/2024 1:53 PM EDT Legal Sex Male 5:52 AM EST Gender Identity Male 06/07/2024 1:53 PM EDT Sexual Orientation Straight 06/07/2024 1: 53 PM EDT Obstetrics History Last Filed Vital Signs Vital Sign Reading Time Taken Comments Blood Pressure 130/64 11/16/2024 9:32 AM EDT Pulse 62 11/16/2024 9:32 AM EDT Temperature 36.6 C (97.9 F) 06/07/2024 2:24 PM EDT Respiratory Rate 16 06/07/2024 3:11 PM EDT Oxygen Saturation 97% 11/16/2024 9:32 AM EDT Inhaled Oxygen Concentration - - Weight 84.4 kg (186 lb) 11/16/2024 9:32 AM EDT Height 190.5 cm (6' 3 ) 11/16/2024 9:32 AM EDT Body Mass Index 23.25 11/16/2024 9:32 AM EDT Plan of Treatment Upcoming Encounters Date Type Department Care Team (Late st Contact Info) Description 08/08/2025 10:00 AM EDT Office Visit Gastroenterology [address] [place] [address] Chasity Addison PA [address] [place] [phone] Health Maintenance Due Date Last Done Comments Hepatitis A Vaccines (1 of 2 - Risk 2-dose series) 1964 Hepatitis B Vaccines (1 of 3 - Risk 3-dose series) 2005 Hepatitis C Screening 02/06/2022 Social Influencers of Health Screening 02/06/2022 Medicare Annual Wellness Visit 09/22/2023 09/21/2022 Depression Screening 02/29/2024 DTaP,Tdap,and Td Vaccines (4 - Td or Tdap) 04/10/2024 04/10/2014, 04/10/2014, 03/24/2011 COVID-19 Vaccine (8 - Moderna risk season) 2024 12/30/2023, 02/25/2023, 09/21/2022, Additional history exists Influenza Vaccine (#1) 2024 , 01/04/2023, 12/18/2021, Additional history exists Falls Risk Assessment 06/07/2025 06/07/2024 Hypertension/CHF/CAD Annual BMP Blood Test 08/30/2025 08/30/2024, 04/23/2024 Cholesterol Screening (Lipid Panel) 08/30/2029 08/30/2024, 04/23/2024, 04/23/2024 Zoster Vaccines Completed 08/06/2019, 03/01, 02/25/2010 Pneumococcal Vaccine: 50+ Years Completed 09/21/2022, 04/09/2015, 03/24/2011, Additional history exists RSV Immunization Adult Patients Completed 02/18/2023 HIB Vaccines Aged Out No longer eligi [...] Procedure Name Priority Date/Time Associated Diagnosis Comments ECG 12-LEAD Routine 11/16/2024 9:51 AM EDT Irregular heart rate COMPREHENSIVE METABOLIC PANEL Routine 08/30/2024 7:08 AM EDT LIPID PANEL Routine 08/30/2024 7:08 AM EDT from Last 3 Months or Most Recently Relevant to Health Maintenance Results * ECG 12 lead (11/16/2024 9:51 AM EDT) Ventricular Rate ECG 61 BPM GEMUSE Atrial Rate 61 BPM GEMUSE P-R Interval 190 ms GEMUSE QRS Duration 120 ms GEMUSE Q-T Interval 460 ms GEMUSE QTc 463 ms GEMUSE P Wave [place] 21 degrees GEMUSE R [place] -35 degrees GEMUSE T [place] 12 degrees GEMUSE ECG Interpretation Normal sinus rhythm Left axis deviation Left ventricular hypertrophy with QRS widening Abnormal ECG When compared with ECG of 13-JUL-2024 14:32, Nonspecific T wave abnormality no longer evident in Anterior leads Confirmed by Parish ALEJANDRE, MITCHELL ([id number]) on 11/16/2024 9:54:54 AM GEMUSE 11/16/2024 9:51 AM EDT 11/16/2024 9:54 AM EDT Mitchell Alejandre MD ECG ORDERABLES Final Result GEMUSE * Lipid panel (08/30/2024 7:08 AM EDT) Cholesterol Total 121 100 - 199 mg/dL [facility] Triglycerides 45 0 - 149 mg/dL [facility] HDL Cholesterol 41 >39 mg/dL [facility] VLDL Cholesterol Calculated 11 5 - 40 mg/dL [facility] LDL Chol Calc (NIH) 69 0 - 99 mg/dL [facility] 08/30/2024 7:08 AM EDT 08/30/2024 Narrative [facility] - 08/31/2024 2:06 AM EDT Performed at: - [facility] [id number] Extrusion Technician: Lorin Christianson MD, Phone: [phone] Meghan Hartley NP LAB BLOOD ORDERABLES Final Result Performing Organization Address City/[facility]/ZIP Co de Phone Number [facility] * (ABNORMAL) Comprehensive metabolic panel (08/30/2024 7:08 AM EDT) Glucose 92 70 - 99 mg/dL [facility] Blood Urea Nitrogen (BUN) 14 8 - 27 mg/dL [facility] Creatinine 0.53(L) 0.76 - 1.27 mg/dL [facility] eGFR 103 >59 mL/min/1. 73 [facility] BUN/Creatinine Ratio 26(H) 10 - 24 [facility] Sodium 141 134 - 144 mmol/L [facility] Potassium 4.2 3.5 - 5.2 mmol/L [facility] Chloride 104 96 - 106 mmol/L [facility] Carbon Dioxide 22 20 - 29 mmol/L [facility] Calcium 9.0 8.6 - 10.2 mg/dL [facility] Protein Total 6.6 6.0 - 8.5 g/dL [facility] Albumin 3.9 3.8 - 4.8 g/dL [facility] Globulin Total 2.7 1.5 - 4.5 g/dL [facility] Bilirubin Total 0.4 0.0 - 1.2 mg/dL [facility] Alkaline Phosphatase 95 44 - 121 IU/L [facility] Aspartate aminotransferase (AST) 14 0 - 40 IU/L [facility] Alanine Aminotransferase (ALT) 8 0 - 44 IU/L [facility] 08/30/2024 7:08 AM EDT 08/30/2024 Narrative [facility] - 08/31/2024 2:06 AM EDT Performed at: - [facility] [address] [id number] Extrusion Technician: Lorin Christianson MD, Phone: [phone] Meghan Hartley NP LAB BLOOD ORDERABLES Final Result [facility] from Last 3 Months or Most Recently Relevant to Health Maintenance Insurance MEDICARE [facility] Member Subscriber Plan / Payer (Ef fective 2011-Present) Name:ERIN ALEXANDER Relation to Subscriber:Self Name:Erin Alexander Payer ID:[id number] Type:Not on file Address: [address] [place] [id number] Care Teams Patient Escort Relationship Specialty Start Date End Date Liane León MD [address] [place] [phone] PCP - General Internal Medicine 04/19/24
--- OUTSIDE RECORDS SUMMARY | 2024-12-20 11:26 | XMS_ITS | Clinical Summary ---
Author Organization [facility] Address [address] [address] Phone Care Team Providers Care Water Resources Business Segment Leader Name Role Phone Cheryl Dickson MD Primary Care Provider [phone] Allergies Active Allergy Reactions Criticality Noted Date Comments Levaquin (Levofloxacin) Rash 11/28/2013 Lovastatin Myalgia 11/28/2013 Niacin Flushing 11/28/2013 Oxycodone-Acetaminophen 06/13/2017 Qvntcdd-Jbc-Rap Reductase Inhibitors 06/13/2017 Medications terazosin (HYTRIN) 1 MG capsule Take 1 mg by mouth nightly at bedtime. Active therapeutic multivitamin tablet Take 1 tablet by mouth daily. Active aspirin 81 MG EC tablet Take 81 mg by mouth daily. Active finasteride (PROSCAR) 5 mg tablet Take 5 mg by mouth daily. Active metoprolol succinate (TOPROL-XL) 25 MG 24 hr tablet Take 12.5 mg by mouth daily. Active oxybutynin (DITROPAN) 5 MG tablet Take 5 mg by mouth nightly at bedtime. Active sacubitriL-valsar ren (SACUBITRIL-VALSA RTAN) 24-26 mg per tablet Take 1 tablet by mouth 2 (two) times a day. Active carbidopa-levodop a (SINEMET) 25-100 mg per tabletIndications :Parkinsonism, unspecified Parkinsonism type Take 1 tablet by mouth 4 (four) times a day. 360 tablet 1 3 Active tamsulosin (FLOMAX) 0.4 mg Cap Take 0.4 mg by mouth daily. Active vibegron (GEMTESA) 75 mg tablet Take 75 mg by mouth daily. 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) Alcohol Use Standard [...] Orientation Straight 10/19/2021 11 :25 AM EDT Last Filed Vital Signs Vital Sign Reading Time Taken Comments Blood Pressure 131/82 10/22/2021 11:17 AM EDT Pulse 57 10/22/2021 11:17 AM EDT Temperature 36.2 C (97.2 F) 10/22/2021 11:17 AM EDT Respiratory Rate 17 02/06/2014 12:00 AM EST Oxygen Saturation 98% 10/22/2021 11:17 AM EDT Inhaled Oxygen Concentration - - Weight 84.4 kg (186 lb) 01/07/2023 12:35 PM EST Height 190.5 cm (6' 3 ) 01/07/2023 12:35 PM EST Body Mass Index 23.25 01/07/2023 12:35 PM EST Plan of Treatment Health Maintenance Due Date Last Done Comments BLOOD PRESSURE 1945 LIPID PANEL 1945 DEPRESSION SCREENING 1957 RSV VACCINE (1 - 1-dose 75+ series) 2020 Adult Td,Tdap Booster 04/10/2024 04/10/2014, 012 INFLUENZA VACCINE (#1) 2024 , 12/18/2021, 11/28/2021, Additional history exists COVID-19 VACCINE (2024- season) 2024 09/21/2022, 01/13/2022, 12/29/2020, Additional history exists HEPATITIS C SCREENING Completed 12/14/2013 ZOSTER VACCINES Completed 08/06/2019, 03/01, 02/25/2010 PNEUMOCOCCAL VACCINES (50+ years) Completed 09/21/2022, 04/09/2015, 03/24/2011 SMOKING STATUS SCREENING (Once After 26 Yrs) Completed 01/07/2023 HEPATITIS A VACCINES Aged Out No long er eligible based on patient's age to complete this topic HIB VACCINES Aged Out No longer eligi ble based on patient's age to complete this topic MENINGOCOCCAL VACCINES (ACWY) Aged Out No longer eligible based on patient's age to complete this topic MENINGOCOCCAL VACCINES (B) Aged Out N o longer eligible based on patient's age to complete this topic Medical Devices Implanted Type Area Information Systems Professor Device Identifier Shelf Expiration Date Model / Serial / Lot Prosthetic Valve Prosthetic Valve Aorta Wire Wire Sternum Procedures Procedure Name Priority Date/Time Associated Diagnosis Comments HISTORICAL LAB Routine 12/14/2013 6:00 PM EDT from Last 3 Months or Most Recently Relevant to Health Maintenance Results * Historical Lab (12/14/2013 6:00 PM EDT) HBV SURFACE ANTIGEN Negative [facility] HCV Antibody Negative [facility] 12/14/2013 6:00 PM EDT 12/14/2013 6:33 PM EDT Comment:BLOOD us Justin Salazar MD, MS LAB BLOOD ORDERABLES Final Result [facility] [address] [place] [address] from Last 3 Months or Most Recently Relevant to Health Maintenance Insurance MEDICARE PART A & B [employer] MEDEX SUPPLEMENT MEDICARE PART A & B [employer] MEDEX SUPPLEMENT MEDICARE PART A & B [facility] MEDEX SUPPLEMENT MEDICARE PART A & B [employer] MEDEX SUPPLEMENT MEDICARE PART A & B [employer] MEDEX SUPPLEMENT MEDICARE PART A & B [employer] MEDEX SUPPLEMENT MEDICARE PART A & B [employer] MEDEX SUPPLEMENT MEDICARE PART A & B [employer] MEDEX SUPPLEMENT MEDICARE PART A & B [employer] MEDEX SUPPLEMENT Advance Directives For more information, please contact: [phone] (9AM - 5PM [facility], Tuesday-Tuesday) Documents on File Type Date Recorded Patient Rail Operations Controller Expl anation Advance Directive - Non Epic LMR 2013 12:00 AM Care Teams Water Resources Business Segment Leader Relationship Specialty Start Date End Date Cheryl Dickson MD [address] [place] [address] [email or web address] PCP - General Internal Medicine 02/15/19 Additional Source Comments The information contained in this document represents components of the legal health record. It is not the complete legal health record.[facility]
--- OUTSIDE RECORDS SUMMARY | 2024-12-20 11:26 | XMS_ITS | Encounter Summary ---
Author Organization [facility] Address [address] [place] [address] Phone Care Team Providers Care Conveyor Belt Installer Name Role Phone Cheryl Dickson MD Primary Care Provider [phone] Reason for Referral * Consultation (Elective) - Closed Specialty Diagnoses / Procedures Referred By Rajat white Referred To Contact Neurology Diagnoses Tremor System, Provider Not In, [facility] [id number] [place] [phone] Phone: tel: Referral ID Status Reason Start Date Expiration Date Visits Re quested Visits Authorized [id number] Closed 04/09/2019 04/09/2020 1 1 Encounter Details Date Type Department Care Team (Late st Contact Info) Description 04/09/2019 Transcribe Orders [facility] Department of Neurology [address] [place] [address], [address], [address] [place] [address] System, Provider Not In, [place] [address] Tremor (Primary Dx) Social History Tobacco Use Types Packs/Day Years Used Date Smoking Tobacco: Never Assessed Sex and Gender Information Value Date Recorded Sex Assigned at Male 10/19/2021 11:25 AM EDT Legal Sex Male 5:18 PM EDT Gender Identity Male 10/19/2021 11:25 AM EDT Sexual Orientation Straight 10/19/2021 11 :25 AM EDT documented as of this encounter Plan of Treatment Scheduled Referrals Name Type Priority Associated Diagnoses Order Schedule Ambulatory referral to [facility] Neurology Outpatient Referral Routine Tremor Ordered: 04/09/2019 documented as of this encounter Visit Diagnoses Diagnosis Tremor- Primary Abnormal involuntary movements documented in this encounter Care Teams Conveyor Belt Installer Relationship Specialty Start Date End Date Cheryl Dickson MD [address] [facility] [address] [place] [address] [email or web address] PCP - General Internal Medicine 02/15/19 documented as of this encounter Additional Source Comments The information contained in this document represents components of the legal health record. It is not the complete legal health record.[facility]
--- OUTSIDE RECORDS SUMMARY | 2024-12-20 11:26 | XMS_ITS | Clinical Summary ---
Author Organization [facility] Address [address] [id number] Care Team Providers Care Financial Systems Director Name Role Phone Cheryl Dickson MD Primary Care Provider [phone] Allergies Active Allergy Reactions Criticality Noted Date Comments Levofloxacin 06/13/2017 Oxycodone-Acetaminophen 06/13/2017 Statins 06/13/2017 Medications Medication Sig Dispensed Refills Start Date End Date Status atenolol (TENORMIN) tablet 100 mg Take by mouth daily. 0 Active hydroCHLOROthiazide (MICROZIDE) 12.5 MG capsule Take by mouth daily. 0 Active terazosin (HYTRIN) 1 MG capsule Take 1 mg by mouth every night at bedtime. 0 Active aspirin EC 81 MG tablet Take 81 mg by mouth daily. 0 Active valsartan (DIOVAN) tablet 160 mg Take 160 mg by mouth daily. 0 Active Active Problems Problem Noted Date Diagnosed Date BPH (benign prostatic hyperplasia) 06/13/2017 Elevated PSA 06/13/2017 Nocturia 06/13/2017 Incomplete bladder emptying 06/13/2017 Hypertension 06/13/2017 Heart disease 06/13/2017 Headache 06/13/2017 Social History Tobacco Use Types Packs/Day Years Used Date Smoking Tobacco: Never Alcohol Use Standard Drinks/Week Comments No 0 (1 standard drink = 0.6 oz pur e alcohol) Sex and Gender Information Value Date Recorded Sex Assigned at Not on file Gender Identity Not on file Sexual Orientation Not on file Job Start Date Occupation Industry Not on file Not on file Not on file Plan of Treatment Health Maintenance Due Date Last Done Comments Hepatitis C Screening 1945 COVID-19 Vaccine (#1) 06/26/1946 Depression Screening 1957 Preventative Health Evaluation 12/27/1963 DTap / Tdap / Td (1 - Tdap) 1964 Shingrix-Zoster Vaccine (1 of 2) 12/27/1995 Fall Risk Assessment 2010 Pneumococcal Vaccine (1 of 1 - PCV) 2010 RSV Adult > 60+ Yrs or Pregn ant (1 - 1-dose 75+ series) 2020 Influenza Vaccine (#1) 2024 Hepatitis B Vaccines Aged Out No long er eligible based on patient's age to complete this topic RSV Ped < 20 months Aged Out No longe r eligible based on patient's age to complete this topic Care Teams Financial Systems Director Relationship Specialty Start Date End Date Cheryl Dickson MD [address] [place] [id number] PCP - General Therapeutic Radiologist 06/15/17
== END 2024-12-20 10:38 | disposition home or self-care (01) ==
LOC: HO.HSMS 09:54
PROVIDERS: PCP Internal Medicine; Visit Provider Psychiatry & Neurology Neurology
DX: G20.A1 Parkinson's disease without dyskinesia, without mention of fluctuations (principal); R42 Dizziness and giddiness; R63.4 Abnormal weight loss
CPT/HCPCS: 99214; G2211

== ENCOUNTER → 2024-12-20 09:53 | Outpatient (BNVA) | payer MEDICARE, SELFPAY | PROVIDERS: PCP Internal Medicine; Visit Provider Psychiatry & Neurology Neurology | DX: G20.A1 Parkinson's disease without dyskinesia, without mention of fluctuations (principal); R42 Dizziness and giddiness; R63.4 Abnormal weight loss | CPT/HCPCS: 99212 ==

== ENCOUNTER 2025-01-29 11:11 | Outpatient (AMB) | payer MEDICARE, SELFPAY ==
--- NOTE | 2025-01-29 11:17 | MHC.OFFVIS ---
Vital Signs 01/29/25 11:18 Height 6 ft 3 in Weight 188 lb BMI 23.5 BP 142/90 H Blood Pressure Location Rt brachial Position Sitting Pulse 72 Pulse Source Pulse Oximeter Pulse Oximetry (%) 97 Oxygen Delivery Method Room Air Intake Visit Reasons: 2mnth Per MD Intake Note: Follow up Parkinson's disease without dyskinesia, Orthostatic lightheadedness and weight loss Compo Conveyor Operator Required: No Accompanied by: Spouse Allergies oxycodone (OXYCODONE) Allergy (Unknown, Verified 12/20/24 09:55) UNK Razrnlc-YYX-DaF Reductase Inhibitor (WWGCLSA-PNT-DPL REDUCTASE INHIBITOR) Allergy (Unknown, Verified 12/20/24 09:55) UNK LEVOQUIN Allergy (Unknown, Uncoded 04/04/23 10:19) UNK LEVOSTATIN Allergy (Unknown, Uncoded 04/04/23 10:19) UNK HPI Comments Details: 79-yr-old male presents for f/u for Parkinson's. Accompanied by his , Swathi.He has liver abscess - recurring ? has an appointment with ID this week. Blood cultures were normal. Parkinsons- He is doing well- he felt slower with qid so he is back to 5 times a day He has dizziness but manageable.He feels stronger. Current PD med tx: CD-LD 25-100mg 1 tab 5 times per day- 6am, 9am, 12pm, 3pm, 6pm. Can be more shaky after 9am dose. Previous trials- 1st tried on rasagiline, he denies intolerance, was switched to carbidopa/ levodopa. History from 06/2024 -Pt reports he underwent interval recent hospitalization for liver abscesses. Per [facility], ID note initial MRI showed new abscess locations compared to previous infections, and the patient eventually underwent drainage with cultures that grew Citrobacter freundii, which was susceptible to tetracyclines, aminoglycosides, cefepime, ceftriaxone, and carbapenems, he was initially started on Zosyn, but due to lack of susceptibility data for Zosyn, antibiotic therapy was switched to ertapenem; imaging also revealed hepatic simple cysts, the largest measuring 10.5 cm, and while IR initially attempted drainage without success, they were able to aspirate a small amount of fluid and planned for a return with CT guidance; the IR drain was ultimately removed on 07/20 following complete resolution of both subcapsular and left hepatic lobe collections, and catheters were removed without complication; throughout the course, the patient denied fever, chills, nausea, or diarrhea, and a PICC line was placed without evidence of swelling, erythema, or drainage; a tentative plan for 4 weeks of IV ertapenem was established, with completion scheduled for 07/24 . Pt reports within 24 hrs of starting the ABT for treatment of above liver abscesses, he started to feel better and was able to eat again. He continues to eat better, taking protein supplements and plans to start a probiotic. He has gained about 6 lb since hospital discharge. Patient and canceled follow-up PFTs and swallow study, as patient is eating better, not having any difficulty swallowing, and he is breathing better since hospital discharge. His energy level overall is in increasing slowly. he was discharged home with PT, however they stated that his gait is okay and he was discharge. Pt is ambidextrous- writes, uses a bow and arrow right handed, shoots a gun left handed. Can hammer either hand. ADL status: Ind Hypophonia: May be hoarse Hyposmia: Intact Dysphagia: Denies Drooling: Noticing more drooling. Orthostatic lightheadedness: Comes and goes. His entresto and metoprolol were stopped during the hospitalization due to orthostatic lightheadedness. : Improved, no leakage. Constipation: Had constipation, but has had some loose stools overall the last few days. Slowness: Walks slower overall. Freezing episodes: Denies Tremor: BUE L > R rest tremor Stiffness: Denies Gait changes: Slower walking. Can be off-balance with turns. No interval falls. Sleep difficulty: Waking up 2 x's per night to void. Slept walked as a child. No recent parasomnias. Memory impairment: Overall ok. Stable STM lapses, usually if not important. Wearing HAs. Plays solitaire on the computer. Hallucinations: Denies Usual exercise: Trying to walk. PFSH Surgical History S/P patent foramen ovale closure H/O transurethral resection of prostate H/O heart surgery Family History Father CHF (congestive heart failure) Emphysema lung Mother Pneumonia Brother Tremor Social History Alcohol intake: never Patient Tobacco Use Status: Never used Tobacco Physical Exam Vital Signs: Last Vital Signs Pulse 72 01/29/25 11:18 BP 142/90 H 01/29/25 11:18 Pulse Ox 97 01/29/25 11:18 Oxygen Delivery Method Room Air 01/29/25 11:18 BMI result Body Mass Index 23.5 Const General: cooperative and no acute distress Resp Effort & Inspection: normal respiratory effort and able to speak in complete sentences Neuro Other: General: Alert and oriented x3 Expression: Decreased facial expression, mild left lower facial asymmetry Voice: normal Tremor: RUE rest tremor, mild BUE postural tremor. Foot taps induced left hand spread of movement Tone: Mild left wrist tone Dyskinesia: None FFM: Mildly decreased Foot taps: Decreased mildly Gait: better - he is doing good , normal stride, mild stoop Psych: Pleasant affect Assessment & Plan Assessment & Plan (1) Parkinson's disease without dyskinesia: Code(s): G20.A1 - Parkinson's disease without dyskinesia, without mention of fluctuations Category: Medical Qualifiers: Fluctuating manifestations: with fluctuating manifestations Qualified Code(s): G20.A2 - Parkinson's disease without dyskinesia, with fluctuations (2) Orthostatic lightheadedness: Code(s): R42 - Dizziness and giddiness Category: Medical (3) Weight loss: Comment: Improving Code(s): R63.4 - Abnormal weight loss Category: Medical Plan Continue carbidopa/levodopa 25/100 1 tab 5 times a day Continue exercise F/u with ID Maintain fluids Coding Level of Care Code Est Pt Level 4 (31091) Complex visit Add On G2211 Diagnoses Parkinson's disease without dyskinesia, with fluctuating manifestations G20.A2 Fluctuating manifestations: with fluctuating manifestations Orthostatic lightheadedness R42 Weight loss R63.4
[2025-01-29 11:18] VITALS: BP 142/90; PULSE 72; O2SAT 97; BMI 23.5
== END 2025-01-29 11:48 | disposition home or self-care (01) ==
LOC: HO.HSMS 11:12
PROVIDERS: PCP Internal Medicine; Visit Provider Psychiatry & Neurology Neurology
DX: G20.A2 Parkinson's disease without dyskinesia, with fluctuations (principal); R42 Dizziness and giddiness; R63.4 Abnormal weight loss
CPT/HCPCS: 99214; G2211

== ENCOUNTER → 2025-01-29 11:11 | Outpatient (BNVA) | payer MEDICARE, SELFPAY | PROVIDERS: PCP Internal Medicine; Visit Provider Psychiatry & Neurology Neurology | DX: G20.A2 Parkinson's disease without dyskinesia, with fluctuations (principal); F02.80 Dementia in other diseases classified elsewhere, unspecified severity, without behavioral disturbance, psychotic disturbance, mood disturbance, and anxiety; R42 Dizziness and giddiness; R63.4 Abnormal weight loss; Z68.23 Body mass index [BMI] 23.0-23.9, adult | CPT/HCPCS: 99212 ==